=== PATIENT | male | born 1960 | race American Indian/Alaskan Native ===

== ENCOUNTER 2017-01-19 16:26 | Inpatient (IN) | payer BC, OTHER ==
[2017-01-19 18:52] LABS: Basophils % (Auto) 0.7 % (0.0-1.8); Eosinophils % (Auto) 2.1 % (0.0-4.3); Hematocrit 38.7 % (35.5-45.6); Hemoglobin 12.9 gm/dl (11.8-15.2); Mean Corpuscular HGB Conc 33 % (32-34); Mean Corpuscular Hemoglobin 29 pg (28-32); Mean Corpuscular Volume 86 fl (84-94); Platelet Count 195 K/mm3 (140-440); Red Blood Count 4.49 M/mm3 (3.65-5.03); Red Cell Distribution Width 13.5 % (13.2-15.2); White Blood Count 11.7 K/mm3 (4.5-11.0)
[2017-01-19 19:12] LABS: BUN/Creatinine Ratio 15.55; Blood Urea Nitrogen 14 mg/dL (9-20); Calcium 8.8 mg/dL (8.4-10.2); Carbon Dioxide 26 mmol/L (22-30); Glucose 185 mg/dL (75-100)
[2017-01-19 19:13] LABS: Anion Gap 18 mmol/L; Potassium 4.1 mmol/L (3.6-5.0); Sodium 139 mmol/L (137-145)
[2017-01-20] MEDS ORDERED: NACL ONE (00:21)
[2017-01-20] MEDS ORDERED: ZOFRAN IV ONE (00:53)
[2017-01-20] MEDS ORDERED: MORPHINE IV ONE (00:53)
[2017-01-20] MEDS ORDERED: APRESOLINE IV ONE (00:53)
[2017-01-20] MEDS ORDERED: BABY ASPIRIN PO ONE (00:55)
--- NOTE | 2017-01-20 00:55 | Emergency Department Report ---
HPI - General Chief Complaint: Dyspnea/Respdistress Time Seen by Provider: 01/20/17 00:15 - HPI HPI: The patient is a 56-year-old male who presents for evaluation of chest pain and dyspnea. The patient reports pressure-like midsternal chest pain for the past 5 days, 5/10 in severity, constant for the past one day. The patient also reports a productive cough of green sputum for the past 3 weeks, worse for the past one day, and associated with intermittent shortness of breath with exertion. The patient denies trauma to the chest, fever, syncope, hemoptysis, unilateral leg swelling, recent immobilization, history of DVT or PE, recent cancer or surgery. ED Past Medical Hx - Past Medical History Hx Hypertension: Yes Hx Diabetes: Yes - Surgical History Hx Coronary Stent: Yes - Social History Smoking Status: Never Smoker Substance Use Type: None - Medications Home Medications: Home Medications Medication Instructions Recorded Confirmed Last Taken Type Amitriptyline [Elavil] 25 mg PO QHS 08/16/15 08/16/15 08/15/15 History Aspirin [Aspirin TAB] 325 mg PO DAILY 08/16/15 08/16/15 08/16/15 History Cyclobenzaprine [Flexeril] 10 mg PO TID PRN #14 tablet 08/16/15 Unknown Rx Hydrochlorothiazide [HCTZ] 25 mg PO QDAY 08/16/15 08/16/15 08/16/15 History Insulin Aspart [NovoLOG Flexpen] 26 units SQ AC 08/16/15 08/16/15 08/15/15 History Insulin Glargine,Hum.rec.anlog 80 units SQ DAILY 08/16/15 08/16/15 08/15/15 History [Lantus Solostar] Lisinopril [Zestril TAB] 40 mg PO QDAY 08/16/15 08/16/15 08/16/15 History Pregabalin [Lyrica] 150 mg PO TID 08/16/15 08/16/15 08/16/15 History oxyCODONE /ACETAMINOPHEN [Percocet 1 - 2 tab PO Q6HR PRN #20 tablet 08/16/15 Unknown Rx 5/325] ED Review of Systems ROS: Stated complaint: TIGHTNESS IN CHEST Other details as noted in HPI Constitutional: denies: fever ENT: denies: throat or neck pain Respiratory: reports: cough, shortness of breath Cardiovascular: reports: chest pain Endocrine: denies unexplained weight loss or gain Gastrointestinal: denies: abdominal pain, nausea Genitourinary: denies: dysuria Musculoskeletal: denies: leg swelling Skin: denies: rash Neurological: denies: headache Hematological/Lymphatic: denies: easy bleeding or easy bruising Psych: denies sadness or hopelessness Physical Exam - Physical Exam Vital Signs: Vital Signs 01/19/17 01/20/17 01/20/17 18:22 00:21 00:29 Temperature 99.7 F H Pulse Rate 93 H 83 Respiratory 16 15 20 Rate Blood Pressure 152/103 O2 Sat by Pulse 99 96 97 Oximetry Physical Exam: General: well-nourished, well-developed, no acute distress Head: Normocephalic, atraumatic Eyes: normal sclera ENT: Mucous membranes are pink and moist Neck: trachea midline, neck supple, No neck stiffness, no cervical adenopathy Respiratory: Breath sounds equal bilaterally, no wheezing, rales, or rhonchi Cardio: S1 and S2 present, no murmurs, rubs, gallops, capillary refill is brisk Abdomen: Normoactive bowel sounds, soft abdomen, no rigidity, no guarding or rebound tenderness Musc: No pitting edema Skin: No rash Neuro: no facial drooping, normal speech Psych: Normal affect ED Course Vital Signs 01/19/17 01/20/17 01/20/17 18:22 00:21 00:29 Temperature 99.7 F H Pulse Rate 93 H 83 Respiratory 16 15 20 Rate Blood Pressure 152/103 O2 Sat by Pulse 99 96 97 Oximetry ED Medical Decision Making - Lab Data Result diagrams: 01/19/17 18:37 01/19/17 18:37 - Medical Decision Making The patient was seen and examined by myself. The patient is placed on a cardiac exercise specialist and continuous pulse ox. On initial evaluation, the patient was found to be in no distress. EKG was negative for findings suggestive of acute cardiac infarct. The patient is given IV morphine for his pain, IV hydralazine for his elevated blood pressure, and Tessalon Perles for his cough. Chest x-ray is negative for pneumothorax, focal consolidation, pulmonary vascular congestion , pleural effusion, or other obvious acute cardiopulmonary disease process. Lab results revealed mildly elevated WBC 11.7, and otherwise labs were non- revealing including negative troponin. CT angiogram of the chest was obtained and revealed a 8 mm left lung apex calcified granuloma. CT of the chest was negative for pulmonary embolism or aortic dissection. The patient was reevaluated and reported that their symptoms were improved. As the patient has chest pain and risk factors for development of acute coronary event, the patient will be admitted for close cardiopulmonary monitoring, serial troponins, and evaluation by cardiology. The on-call hospitalist service was contacted. They agreed to admit the patient for further treatment and close monitoring. The ED admit order was placed. The patient was admitted in guarded condition. Critical care attestation.: If time is entered above; I have spent that time in minutes in the direct care of this critically ill patient, excluding procedure time. ED Disposition Clinical Impression: Acute chest pain, Hypertensive urgency, Lung granuloma Disposition: OP ADMITTED IP TO THIS HOSP Is pt being admited?: Yes Does the pt Need Aspirin: Yes Condition: Fair Instructions: Chest Pain (ED), Hypertension (ED) Referrals: [facility] [Other] - 3-5 Days Time of Disposition: 00:54
--- NOTE | 2017-01-20 02:00 | Cat Scan Report ---
FINAL REPORT PROCEDURE: CT ANGIO CHEST TECHNIQUE: Computerized axial tomographic angiography of the chest and pulmonary arteries was performed after the IV injection of iodinated nonionic contrast. The image data was postprocessed using maximum intensity projection (MIP) and 2-dimensional multiplanar reformatted (MPR) techniques. The examination is specifically tailored to the evaluation of the pulmonary arteries per clinical request. HISTORY: Short of breath 786.09, chest pain 786.50, chest pain COMPARISON: No prior studies are available for comparison. FINDINGS: Heart and pericardium: Normal. Thoracic aorta: There is no thoracic aortic aneurysm or dissection.. Pulmonary vasculature: Normal. No pulmonary emboli. Lymph nodes: No enlarged thoracic lymph nodes. Lungs: There is an 8 millimeter calcified granuloma at the left lung apex. There are no infiltrates.. Pleural space: No effusion, thickening, or pneumothorax. Musculoskeletal structures: No significant abnormality. Upper abdominal structures: No significant abnormality. IMPRESSION: There is no pulmonary embolism. There is no thoracic aortic aneurysm or dissection. The lungs are clear..
[2017-01-20] MEDS ORDERED: TESSALON PERLES PO ONE (02:19)
--- NOTE | 2017-01-20 03:37 | History and Physical Report ---
History of Present Illness Date of examination: 01/20/17 Chief complaint: Chest pain History of present illness: Patient is 56-year-old man with a history of type 2 diabetes mellitus, peripheral neuropathy, hypertension and coronary artery disease status post coronary stent who presents with 5 day history of substernal moderate intense pressure-like nonradiating chest pain that became constant within the last 24 hours without aggravating or relieving factors associated with worsening productive green sputum cough 3 weeks with shortness of breath. PCP is Dr. Braun at the [place] [facility]. Past medical history: As HPI Past surgical history: Cardiac catheterization Social history: Nonsmoker, no alcohol or illegal drugs, full code Family history: Father had heart attack in his 60, brother had a heart attack in his 50s ROS: as HPI and all other ROS reviewed and negative. Medications and Allergies Allergies Allergy/AdvReac Type Severity Reaction Status Date / Time No Known Allergies Allergy Verified 05/18/16 13:24 Home Medications Medication Instructions Recorded Confirmed Last Taken Type Amitriptyline [Elavil] 25 mg PO QHS 08/16/15 08/16/15 08/15/15 History Aspirin [Aspirin TAB] 325 mg PO DAILY 08/16/15 08/16/15 08/16/15 History Cyclobenzaprine [Flexeril] 10 mg PO TID PRN #14 tablet 08/16/15 Unknown Rx Hydrochlorothiazide [HCTZ] 25 mg PO QDAY 08/16/15 08/16/15 08/16/15 History Insulin Aspart [NovoLOG Flexpen] 26 units SQ AC 08/16/15 08/16/15 08/15/15 History Insulin Glargine,Hum.rec.anlog 80 units SQ DAILY 08/16/15 08/16/15 08/15/15 History [Lantus Solostar] Lisinopril [Zestril TAB] 40 mg PO QDAY 08/16/15 08/16/15 08/16/15 History Pregabalin [Lyrica] 150 mg PO TID 08/16/15 08/16/15 08/16/15 History oxyCODONE /ACETAMINOPHEN [Percocet 1 - 2 tab PO Q6HR PRN #20 tablet 08/16/15 Unknown Rx 5/325] Active Meds: Active Medications Aspirin (Aspirin) 325 mg PO DAILY LUIS Heparin Sodium (Porcine) (Heparin) 5,000 unit SUB-Q Q12HR LUIS Metoprolol Tartrate (Lopressor) 25 mg PO BID LUIS Exam - Physical Exam Narrative exam: GEN: WDWN, NAD, AWAKE, ALERT, ORIENTATED 3 HEENT: NCAT, PERRL, EOMI, OP CLEAR NECK: SUPPLE, NO THYROMEGALY, NO JVD, NO LAD CVS: RRR, NORMAL S1S2 LUNGS/CHEST: CTA B, NORMAL CHEST EXPANSION B, GOOD AIR ENTRY B ABD: SOFT NTND, GBS, NO REBOUND OR GUARDING EXT/SKIN: NO SIGNIFICANT EDEMA OR RASH MSK: FROM X 4 EXTREMITIES NEURO: CN 2-12 GROSSLY INTACT, NO new FOCAL DEFICITS PSY: CALM - Constitutional Vitals: Temp Pulse Resp BP Pulse Ox 99.7 F H 94 H 20 148/85 93 01/19/17 18:22 01/20/17 03:00 01/20/17 03:00 01/20/17 03:00 01/20/17 03:00 Results - Labs CBC & Chem 7: 01/19/17 18:37 01/19/17 18:37 Labs: Abnormal lab results 01/19/17 01/19/17 01/20/17 Range/Units 18:37 18:37 02:29 WBC 11.7 H (4.5-11.0) K/mm3 [place] % (Auto) 7.8 H (0.0-7.3) % [place] # 0.9 H (0.0-0.8) K/mm3 Seg Neutrophils # 7.8 H (1.8-7.7) K/mm3 Glucose 185 H (75-100) mg/dL C-Reactive Protein 4.00 H (0.00-1.30) mg/dL Assessment and Plan Patient is 56-year-old man with a history of type 2 diabetes mellitus, peripheral neuropathy, hypertension and coronary artery disease status post coronary stent who presents with 5 day history of substernal moderate intense pressure-like nonradiating chest pain that became constant within the last 24 hours without aggravating or relieving factors associated with worsening productive green sputum cough 3 weeks with shortness of breath. PCP is Dr. Braun at the [facility]. CTA of the chest shows no PE..8 mm calcified granuloma left lung apex otherwise lungs clear. Cardiac enzymes, troponin and EKG unrevealing for acute coronary syndrome so far. -Chest pain: Stress test, treated with aspirin and beta blockers, nitrates -Cough, likely upper respiratory: Treat symptomatically -Type 2 diabetes mellitus: Add sliding scale insulin -Hypertension uncontrolled: Add beta sindy -Mild leukocytosis most likely reactive: Continue to follow Full code
[2017-01-20] MEDS ORDERED: NITROSTAT SL PRN (03:43)
[2017-01-20] MEDS ORDERED: D50W (25GM) IV PRN (03:43)
[2017-01-20] MEDS ORDERED: TYLENOL PO PRN (03:43)
[2017-01-20] MEDS ORDERED: ZOFRAN IV PRN (03:43)
--- NOTE | 2017-01-20 08:08 | Admit Criteria Form ---
Admission Criteria Documentation: CARDIOLOGY GRG Clinical Indications for Admission to Inpatient Care ( Place 'X' for any and all applicable criteria): Hospital admission is needed for appropriate care of the patient because of ANY ONE of the following (1): [ ] I. Hemodynamic instability as indicated by ALL of the following (1)(2)(3) (4)(5) [ ]a) Vital signs or other findings not as expected for chronic patient condition or baseline [ ]b) Instability indicated by ANY ONE of the following: [ ]i) Hypotension [ ]ii) Symptomatic Tachycardia unresponsive to treatment ( e.g., analgesia, fluids, sedation as indicated) [ ]iii) Inadequate perfusion indicated by ANY ONE of the following: [ ] 1) Lactic acidosis (> 2 mmol/L) [ ] 2) New abnormal capillary refill (> 3 seconds) [ ] 3) Reduced urine output [ ] 4) New altered mental status [ ]iv) Orthostatic vital sign changes unresponsive to treatment (e.g., fluids) [ ]v) IV inotropic or vasopressor medication required to maintain adequate blood pressure or perfusion [ ] II. Severe heart failure as indicated by ANY ONE of the following(17)(18) [ ]a) Respiratory distress [ ]b) Hypotension [ ]c) Anasarca (refractory to outpatient therapy) [ ]d) Cardiac arrhythmias of immediate concern [ ]e) Myocardial ischemia [ ] III. Cardiac arrhythmias or findings of immediate concern indicated by ANY ONE of the following (19)(20): [ ] a) Heart rhythms that are inherently dangerous or unstable indicated by ANY ONE of the following (21)(22)(23): [ ] i) Resuscitated ventricular fibrillation or cardiac arrest [ ] ii) Ventricular escape rhythm [ ] iii) Sustained ventricular tachycardia (30 seconds or more of ventricular rhythm at greater than 100 beats per minute) [ ] iv) Nonsustained ventricular tachycardia and ANY ONE of the following: [ ] 1) Suspected cardiac ischemia as cause or consequence of ventricular tachycardia [ ] 2) In setting of acute myocarditis [ ] b) Unstable cardiac conduction defects indicated by ANY ONE of the following(23)(24)(25) [ ] i) Type II second-degree atrioventricular block [ ]ii) Third-degree atrioventricular block [ ]iii) New-onset left bundle branch block with suspected myocardial ischemia [ ]c) Any heart rhythm and ANY ONE of the following (21)(22)(26)(27) (28) [ ] i) Continuous long-term ECG monitoring needed (e.g., initiation of drug requiring monitoring for more than 24 hours) [ ] ii) Patient has automatic implanted cardioverter defibrillator that is repeatedly firing, malfunctioning, or in need of immediate adjustment of settings beyond the scope of ambulatory or observation care [ ]d) Heart rhythms of concern due to ANY ONE of the following: [ ] i) Hypotension [ ] ii) Respiratory distress [ ] iii) Association with other significant symptoms (e.g., bradycardia with syncope or ongoing dizziness, supraventricular tachycardia with chest pain (14)(15)(17) [ ] IV. Monitoring for cardiac contusion beyond the scope of observation care needed [A](30)(31)(32) [ ] V. Surgical or device complication (e.g., valve replacement complication , pacemaker dysfunction) (35)(41)(44)(45)(46) [ ] . Inpatient palliative care needed. [B](49) Also use Inpatient Palliative Care Criteria [ ] VII. Nonbacterial thrombotic (marantic) endocarditis (36)(43)(47)(48) [ X] VIII. Cardiology condition, symptom, or finding for which emergency and observation care has failed or are not considered appropriate. [ ] IX. Acute valvular disease requiring inpatient as indicated by ANY ONE of the following (41) [ ]a) Acute valvular regurgitation (42) [ ]b) Noninfectious valvulitis (43) [ ]c) Obstructive valve thrombosis [ ]d) Paravalvular leak [ ]e) Other significant valvular disorder remaining after emergency or observation level of care (as appropriate) [ ]X. Pericardial disease requiring inpatient treatment as indicated by ANY ONE of the following (33)(34)(35)(36)(37) [ ]a) Suspected tamponade (38)(39)(40) [ ]b) Hemopericardium [ ]c) Other significant pericardial disorder remaining after emergency or observation level of care (as appropriate) [ ] XI. Cardiac ischemia beyond scope of emergency and observation care. [ ] XII. Hypertension requiring inpatient treatment as indicated by ANY ONE of the following (6)(7)(8) [ ]a) SBP greater than 220 mm Hg or DBP greater than 120 mmHg despite treatment [ ]b) SBP greater than 140 mm Hg or DBP greater than 100 mm Hg with evidence of acute end organ damage as indicated by ANY ONE of the following [ ] i) Altered mental status [ ] ii) Acute renal failure as indicated by new onset of ANY ONE of the following (9)(10)(11)(12)(13) [ ]1) 3-fold rise in serum creatinine from baseline [ ]2) Serum creatinine greater than 4 mg/dL ( 354 micromoles/L) with acute rise greater than 0.5 mg/dL (44.2 micromoles/L) [ ]3) Reduction of more than 75% in estimated glomerular filtration rate from baseline [ ]4) Estimated glomerular filtration rate less than 35 mL/min/1.73m2 (0.59 mL/sec/1.73m2) in child up to 18 years of age [ ]5) Cessation of urine output indicated by ALL of the following [ ]A. Adequate volume status [ ]B. Inadequate urine output as indicated by ANY ONE of the following [ ]a. Urine output less than 0.3 mL/kg/hr for 24 hours [ ]b. Anuria (urine output less than 0.1 mL/kg/hr) for 12 hours [ ] iii) Aortic dissection [ ] iv) Myocardial Ischemia [ ] v) Left ventricular heart failure [ ]vi) Retinal Hemorrhage [ ]vii) Other significant finding [ ]c) Hypertension in child requiring inpatient treatment as indicated by ALL of the following(14)(15)(16) [ ] i) Outpatient treatment not effective, not available, or not appropriate [ ]ii) SBP or DBP greater than 95th percentile for age [ ]iii) Evidence of acute end organ damage as indicated by ANY ONE of the following [ ]1) Altered mental status [ ]2) Acute renal failure as indicated by new onset of ANY ONE of the following(9)(10)(11)(12)(13) [ ]A. 3-fold rise in serum creatinine from baseline [ ]B. Serum creatinine greater than 4 mg/dL (354 micromoles/L) with acute rise greater than 0.5 mg/dL (44.2 micromoles/L) [ ]C. Reduction of more than 75% in estimated glomerular filtration rate from baseline [ ]D. Estimated glomerular filtration rate less than 35 mL/min/1.73m2 (0.59 mL/sec/1.73m2) in child up to 18 years of age [ ]E. Cessation of urine output indicated by ALL of the following [ ]a. Adequate volume status [ ]b. Inadequate urine output as indicated by ANY ONE of the following [ ]i) Urine output less than 0.3 mL/kg/hr for 24 hours [ ]ii) Anuria ( urine output less than 0.1 mL/kg/hr) for 12 hours [ ]3) Severe headache [ ]4) Visual disturbance [ ]5) Retinal hemorrhage [ ]6) Other significant finding [ ]XIII. Complications of transplanted heart indicated by ANY ONE of the following(61): [ ]a) Acute graft rejection requiring inpatient management (eg, intravenous immunosuppression)(62)(63) [ ]b) Acute graft heart failure indicated by ANY ONE of the following(64): [ ]i) Hemodynamic instability [ ]ii) Cardiac arrhythmias of immediate concern [ ]iii) Pulmonary edema that is very severe (eg, mechanical ventilation needed, imminent or likely, need for 100% oxygen to keep oxygen saturation above 90%) [ ]iv) Pulmonary edema that is persistent as indicated by ALL of the following: [ ]1) New need for oxygen therapy to keep oxygen saturation above 90% (or increased FiO2 need from baseline) [ ]2) Has not improved sufficiently with emergency department or observation care IV diuretics or other heart failure treatments[E] [ ]v) Altered mental status that is severe or persistent [ ]vi) Increased creatinine (new on laboratory test) with reduction of more than 50% in estimated glomerular filtration rate from baseline [ ]vii) Progressively (ongoing) rising creatinine (known from past laboratory test) with reduction of more than 25% in estimated glomerular filtration rate from baseline [ ]viii) Acute renal failure [ ]ix) Acute peripheral ischemia (eg, examination shows pulseless, cool, mottled, or cyanotic extremity) [ ]x) Pulmonary artery catheter monitoring needed [ ]xi) Other sign or symptom of heart failure requiring inpatient treatment (ie, too severe or not responsive to outpatient and observation care treatment) [ ]c) Infection requiring inpatient management (eg, Hemodynamic instability, need for intravenous antimicrobial treatment)(66)(67)(68)(69)(70) [ ]d) Cardiac allograft vasculopathy requiring inpatient management ( eg evidence of cardiac ischemia)(71) [ ]e) Other complication of transplanted heart (eg, stroke, severe pulmonary hypertension, severe valvular dysfunction) requiring inpatient management(72) The original [facility] [employer] content created by [email or web address] has been revised. The portions of the content which have been revised are identified through the use of italic text or in bold, and [facility] has neither reviewed nor approved the modified material. All other unmodified content is copyright [facility] [email or web address]. Please see references footnoted in the original [facility] [email or web address] edition 2016 Admission Criteria Met: Yes
[2017-01-20] MEDS ORDERED: LEXISCAN IV ONE (08:30)
[2017-01-20] MEDS: ASPIRIN PO SCH (10:51)
[2017-01-20] MEDS: LOPRESSOR PO SCH ×2 (10:52→22:13)
[2017-01-20] MEDS: HEPARIN SUB-Q SCH ×2 (10:53→22:13)
--- NOTE | 2017-01-20 11:50 | Event Note ---
Date: 01/20/17 Patient seen and examined. This is a follow-up from an admission earlier this morning. I discussed the case with the brush filler hand. The stress thallium appears to be negative. However, patient does have a diminished EF. We will obtain an echocardiogram for further evaluation. The chest pain is atypical. The patient describes pain more associated with coughing. Patient states that his symptoms began with cough and cold symptoms. Cough productive of yellow sputum. I suspect patient may have an acute bronchitis. We will treat with Levaquin 750 mg IV daily.
[2017-01-20] MEDS ORDERED: PNEUMOVAX 23 IM ONE (12:00)
[2017-01-20] MEDS ORDERED: FLUARIX QUAD 2016-2017(36 MOS+) IM ONE (12:00)
[2017-01-20] MEDS ORDERED: LEVAQUIN 750MG/150ML 750 MG/150 ML BAG IV SCH (15:00)
--- NOTE | 2017-01-20 16:55 | Event Note ---
Date: 01/20/17 Echo reviewed - EF 50 - 55%. Cont Lopressor. Follow up with Dr. Farr in our [place] office on 02/01/2017 @ 10:00AM. Omar GARRIDO NP / DR. CRUZ
[2017-01-20] MEDS: NOVOLOG SUB-Q SCH ×2 (17:42→20:28)
--- NOTE | 2017-01-20 23:56 | Treadmill Report ---
PROCEDURE: Nuclear perfusion study done on 01/20/2017. REASON FOR STUDY: Chest pain. READING PHYSICIAN: Raman Farr MD IMAGING PROTOCOL: IMAGING PROTOCOL: The patient received 10 mCi of Technetium 99m Tetrofosmin for resting image and 28 mCi of Technetium 99m Tetrofosmin for stress imaging. The imaging for the whole procedure was completed 30-90 minutes following the initial injection of Technetium 99m tetrofosmin. The SPECT imaging in the 180 degree arc was performed in the right anterior oblique projection. Computerized reconstruction of the images was performed for analysis. IMAGING RESULTS: Normal cavity size from stress to rest. Normal distribution of radionuclide in the anterior, inferior, septal and apical regions. Gated SPECT shows EF of 35% to 40% with no wall motion abnormality. The patient infused Lexiscan with no EKG changes. SUMMARY: 1. Negative Lexiscan EKG. 2. Normal rest and stress myocardial perfusion scan. No significant ischemia noted. 3. Gated SPECT shows EF around 35 to 40%, we suggest an echo for quantification LV function, but no significant ischemia noted. JOB# [id number] BETTY/FERNY NELSON
[2017-01-21] MEDS: NOVOLOG SUB-Q SCH ×2 (00:13→07:09)
--- NOTE | 2017-01-21 09:31 | Discharge Summary ---
Providers - Providers Date of Admission: 01/20/17 03:28 Date of discharge: 01/21/17 Attending physician: LEVI OMALLEY none Primary care physician: dr naidu at the [facility] Hospitalization Condition: Fair Pertinent studies: Perfusion stress tests unremarkable. CT of chest also unremarkable. Echocardiogram ejection fraction 55%. isoenzymes negative. Hospital course: Patient 56-year-old male with history of hypertension coronary artery disease status post stent presented to ED with green productive sputum chest pain. Patient treated for upper respiratory tract infection and also ruled out for myocardial infarction and ischemia to follow-up with [facility] on 2016. Disposition: DISCHARGED TO HOME OR SELFCARE - Discharge Diagnoses (1) Bronchitis Status: Acute Comment: Continue by mouth anabiotic's azithromycin upon discharge. Follow-up with [facility] in 3-5 days. (2) Acute chest pain Status: Acute Comment: She ruled out for myocardial infarction follow-up with [facility] Dr. Farr on February 01 (3) Hypertensive urgency Status: Acute Comment: Resolved after resumption of by mouth antihypertensives (4) Lung granuloma Status: Acute Comment: Stable granuloma can be followed up on outpatient basis. Core Measure Documentation - Palliative Care Palliative Care/ Comfort Measures: Not Applicable - Core Measures Any of the following diagnoses?: none Exam - Constitutional Vitals: Temp Pulse Resp BP Pulse Ox 98.2 F 76 20 167/84 98 01/21/17 05:33 01/21/17 05:33 01/21/17 05:33 01/21/17 05:33 01/21/17 05:33 General appearance: Present: no acute distress, well-nourished - EENT Eyes: Present: PERRL ENT: hearing intact, clear oral mucosa - Neck Neck: Present: supple, normal ROM - Respiratory Respiratory effort: normal Respiratory: bilateral: CTA - Cardiovascular Heart Sounds: Present: S1 & S2. Absent: rub, click - Extremities Extremities: pulses symmetrical, No edema Peripheral Pulses: within normal limits - Abdominal General gastrointestinal: Present: soft, non-tender, non-distended, normal bowel sounds Male genitourinary: Present: normal - Integumentary Integumentary: Present: clear, warm, dry - Musculoskeletal Musculoskeletal: gait normal, strength equal bilaterally - Psychiatric Psychiatric: appropriate mood/affect, intact judgment & insight - Neurologic Neurologic: CNII-XII intact, moves all extremities Plan Activity: no restrictions Weight Bearing Status: Full Weight Bearing Diet: low cholesterol Follow up with: [facility] [Other] - 3-5 Days Prescriptions: Amitriptyline [Elavil] 25 mg PO QHS #30 tablet Aspirin [Aspirin TAB] 325 mg PO DAILY #30 tablet Cyclobenzaprine [Flexeril 10 MG TAB] 10 mg PO TID PRN #14 tablet PRN Reason: Muscle Spasm Hydrochlorothiazide [HCTZ] 25 mg PO QDAY #30 tablet Insulin Aspart [NovoLOG Flexpen] 26 units SQ AC #1 insuln.pen Insulin Glargine,Hum.rec.anlog [Lantus Solostar] 80 units SQ DAILY #1 insuln.pen Lisinopril [Zestril TAB] 40 mg PO QDAY #30 tablet Metoprolol [Lopressor TAB] 25 mg PO BID #60 tablet Pregabalin [Lyrica] 150 mg PO TID #90 capsule
--- NOTE | 2017-01-21 09:56 | Query- Chest Pain ---
Deajanet Ho Davin Date: 01/21/17 Film Masker/CDS: Talon Prasad Phone#: [phone] Exercise your independent professional judgment when responding to query. Questions asked do not imply a particular answer is desired or expected. We greatly appreciate your clarification on this issue. Clinical Documentation States: 56 year old male was admitted on 01/20/17. The discharge summary dictates " Hospitalization Condition: Fair Pertinent studies: Perfusion stress tests unremarkable. CT of chest also unremarkable. Echocardiogram ejection fraction 55%. isoenzymes negative. Hospital course: Patient 56-year-old male with history of hypertension coronary artery disease status post stent presented to ED with green productive sputum chest pain. Patient treated for upper respiratory tract infection and also ruled out for myocardial infarction and ischemia to follow-up with [facility] on 2016. Disposition: DISCHARGED TO HOME OR SELFCARE - Discharge Diagnoses (1) Bronchitis Status: Acute Comment: Continue by mouth anabiotic's azithromycin upon discharge. Follow-up with [place] [facility] in 3-5 days. (2) Acute chest pain Status: Acute Comment: She ruled out for myocardial infarction follow-up with [facility] Dr. Farr on February 01 (3) Hypertensive urgency Status: Acute Comment: Resolved after resumption of by mouth antihypertensives (4) Lung granuloma Status: Acute Comment: Stable granuloma can be followed up on outpatient basis. " Please document the etiology of Chest Pain: [ ] Myocardial Infarction [ ] Pneumonia [ ] Mediastinitis [ x] Costochondritis [ ] Pulmonary Embolism [ ] Coronary Artery Disease [ ] GERD [ ] Other: [ ] Comment/Explanation: Present on Admission: [ x] Yes (Y) [ ] Clinically undeterminable (W) [ ] No(N) Please document response in your Progress Notes and/or Discharge Summary and indicate if the condition was present on admission. OMAR
[2017-01-21] MEDS: HEPARIN SUB-Q SCH (10:02)
[2017-01-21] MEDS: ASPIRIN PO SCH (10:31)
[2017-01-21] MEDS: LOPRESSOR PO SCH (10:34)
[2017-01-21 10:39] VITALS: BP 181/101
== END 2017-01-21 15:05 | disposition home or self-care (01) | DRG 206 ==
LOC: ED 16:26 → 4A 01-20 03:28
PROVIDERS: ADMIT Internal Medicine; ATTEND Internal Medicine
DX: M94.0 Chondrocostal junction syndrome [Tietze] (principal); I16.0 Hypertensive urgency; J84.10 Pulmonary fibrosis, unspecified; I25.10 Atherosclerotic heart disease of native coronary artery without angina pectoris; J20.9 Acute bronchitis, unspecified; E11.42 Type 2 diabetes mellitus with diabetic polyneuropathy; D72.829 Elevated white blood cell count, unspecified; J06.9 Acute upper respiratory infection, unspecified; Z95.5 Presence of coronary angioplasty implant and graft; Z82.49 Family history of ischemic heart disease and other diseases of the circulatory system
CPT/HCPCS: 36415; 71020; 71275; 78452; 80048; 82164; 82962; 83880; 84484; 85025; 85652; 86140; 90686; 90732; 93005; 93010; 93017; 93306; 96374; 96375; A9502; J0360; J1644; J1815; J1956; J2270; J2405; J2785; Q9967

== ENCOUNTER 2017-12-22 18:59 | Emergency (ER) | payer BC ==
--- NOTE | 2017-12-22 20:38 | Emergency Department Report ---
ED Syncope HPI - General Chief Complaint: Extremity Injury, Lower Stated Complaint: LOW BP/CRAMPING Time Seen by Provider: 12/22/17 20:14 Source: patient, family, EMS Exam Limitations: no limitations - History of Present Illness Initial Comments: 57-year-old man had syncopal or near syncopal episode approximately 90 minutes prior to arrival. 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 Patient subsequently developed secondary sweating, was called, found patient in a near syncopal state, upright in a chair at the school, but not responsive to him. EMS was called, found blood pressure was difficult to obtain, begin IV, Reglan EKG which without acute abnormality, and transferred patient for further evaluation. Patient is an insulin-dependent diabetic, takes his insulin regularly, but does not follow any particular diet, was not ill recently, has been eating and drinking normally, but reports she has had prior episodes, the latest one was 2 or 3 weeks ago, but was much more brief, with cramping in the calves, and mild brief lightheadedness. He has not sought treatment for this before. Past history is significant for hypertension, diabetes mellitus, and prior cardiac stenting several years ago. Patient had no chest pain, no shortness of breath, and is feeling much better after arrival in emergency department. EKG reviewed by EMS, shows normal sinus rhythm, heart rate of 80, nonspecific ST flattening, and insignificant ST elevation in V1 and V2, less than 2 mm, but no old tracing for comparison. Timing/Prior Episodes: recent history, remote history Precipitating Factors: Positive: blurred vision, confusion, diaphoresis, lightheadedness, pain (cramping, lower extremities). Negative: nausea Context: standing, activity Episode Description: bilateral extremity cramping, likely lower, with lightheadedness and syncop - Related Data Allergies/Adverse Reactions: Allergies No Known Allergies Allergy (Verified 05/18/16 13:24) Home Medications: Ambulatory Orders Aspirin [Aspirin TAB] 325 mg PO DAILY 08/16/15 Amitriptyline [Elavil] 25 mg PO QHS #30 tablet 01/21/17 Aspirin [Aspirin TAB] 325 mg PO DAILY #30 tablet 01/21/17 Cyclobenzaprine [Flexeril 10 MG TAB] 10 mg PO TID PRN #14 tablet 01/21/17 Hydrochlorothiazide [HCTZ] 25 mg PO QDAY #30 tablet 01/21/17 Insulin Aspart [NovoLOG Flexpen] 26 units SQ AC #1 insuln.pen 01/21/17 Insulin Glargine,Hum.rec.anlog [Lantus Solostar] 80 units SQ DAILY #1 insuln.pen 01/21/17 Lisinopril [Zestril TAB] 40 mg PO QDAY #30 tablet 01/21/17 Metoprolol [Lopressor TAB] 25 mg PO BID #60 tablet 01/21/17 Pregabalin [Lyrica] 150 mg PO TID #90 capsule 01/21/17 ED Review of Systems ROS: Stated complaint: LOW BP/CRAMPING Other details as noted in HPI Constitutional: see HPI, diaphoresis, weakness. denies: fever Eyes: denies: eye pain, eye discharge, vision change ENT: denies: ear pain, throat pain Respiratory: no symptoms reported. denies: shortness of breath Cardiovascular: syncope. denies: chest pain, palpitations, dyspnea on exertion , edema Endocrine: denies: increased hunger, increased thirst, increased urine Gastrointestinal: denies: abdominal pain, nausea, vomiting Genitourinary: denies: dysuria, frequency Musculoskeletal: other (cramping, bilateral, lower extremities) Skin: as per HPI Neurological: weakness, paresthesias Psychiatric: denies: anxiety, depression Hematological/Lymphatic: denies: easy bleeding, easy bruising ED Past Medical Hx - Past Medical History Previous Medical History?: Yes Hx Hypertension: Yes Hx Diabetes: Yes Hx Kidney Stones: Yes Hx Asthma: No Hx COPD: No - Surgical History Past Surgical History?: Yes Hx Coronary Stent: Yes Additional Surgical History: testicle removed in 1969 - Social History Smoking Status: Never Smoker Substance Use Type: None - Medications Home Medications: Home Medications Medication Instructions Recorded Confirmed Last Taken Type Aspirin [Aspirin TAB] 325 mg PO DAILY 08/16/15 01/20/17 1 Day Ago History ~01/19/17 Amitriptyline [Elavil] 25 mg PO QHS #30 tablet 01/21/17 Unknown Rx Aspirin [Aspirin TAB] 325 mg PO DAILY #30 tablet 01/21/17 Unknown Rx Cyclobenzaprine [Flexeril 10 MG 10 mg PO TID PRN #14 tablet 01/21/17 Unknown Rx TAB] Hydrochlorothiazide [HCTZ] 25 mg PO QDAY #30 tablet 01/21/17 Unknown Rx Insulin Aspart [NovoLOG Flexpen] 26 units SQ AC #1 insuln.pen 01/21/17 Unknown Rx Insulin Glargine,Hum.rec.anlog 80 units SQ DAILY #1 insuln.pen 01/21/17 Unknown Rx [Lantus Solostar] Lisinopril [Zestril TAB] 40 mg PO QDAY #30 tablet 01/21/17 Unknown Rx Metoprolol [Lopressor TAB] 25 mg PO BID #60 tablet 01/21/17 Unknown Rx Pregabalin [Lyrica] 150 mg PO TID #90 capsule 01/21/17 Unknown Rx ED Physical Exam - General Limitations: No Limitations General appearance: alert, in no apparent distress - Head Head exam: Present: atraumatic, normocephalic - Eye Eye exam: Present: normal appearance, PERRL - ENT ENT exam: Present: mucous membranes moist - Neck Neck exam: Present: normal inspection - Respiratory Respiratory exam: Present: normal lung sounds bilaterally. Absent: wheezes, rales, rhonchi - Cardiovascular Cardiovascular Exam: Present: regular rate, normal rhythm, normal heart sounds. Absent: systolic murmur, diastolic murmur - GI/Abdominal GI/Abdominal exam: Present: soft. Absent: tenderness - Rectal Rectal exam: Present: deferred - Extremities Exam Extremities exam: Present: normal inspection, other (no muscle spasm). Absent: tenderness, pedal edema, joint swelling - Back Exam Back exam: Present: normal inspection. Absent: CVA tenderness (R), CVA tenderness (L), muscle spasm, paraspinal tenderness, vertebral tenderness - Neurological Exam Neurological exam: Present: alert, oriented X3 - Psychiatric Psychiatric exam: Present: normal affect, normal mood - Skin Skin exam: Present: warm, dry, intact. Absent: pallor ED Course Vital Signs 12/22/17 12/22/17 12/22/17 19:27 21:00 22:00 Temperature 99.5 F Pulse Rate 78 79 77 Respiratory 13 17 15 Rate Blood Pressure 149/85 157/92 150/87 Blood Pressure 149/85 [Left] O2 Sat by Pulse 97 97 96 Oximetry - Reevaluation(s) Reevaluation #1: 12/22/17 22:12 Patient stable on recheck, asymptomatic, with normal labs, and normal EKG. Repeat blood pressure is 143/86, heart rate 76. ED Medical Decision Making - Lab Data Result diagrams: 12/22/17 20:37 12/22/17 20:51 - EKG Data -: EKG Interpreted by Ct EKG shows normal: sinus rhythm, axis (normal at 21 QRS axis), intervals ( normal QT at 436 ms corrected), QRS complexes (normal QRS complexes), ST-T waves (normal ST segments without elevations) Rate: normal - EKG Data When compared to previous EKG there are: previous EKG unavailable Interpretation: normal EKG - Medical Decision Making Patient has had a near-syncopal episode, likely as a result of being overheated , with a vasovagal response, while he was performing modest exertional physical activities as part of his routine work duties before arrival. He has been stable during his entire examination, blood pressure is been stable. He has a mild CK elevation, likely indicative of mild heat exhaustion, but he is not anemic, and no significant electrolyte abnormalities, but his glucose is actually fairly stable at 240. He is stable for discharge home, will be placed off work tomorrow to rest, and has a scheduled visit with his primary doctor tomorrow, and copies of labs will be given for review. Critical Care Time: No Critical care attestation.: If time is entered above; I have spent that time in minutes in the direct care of this critically ill patient, excluding procedure time. ED Disposition Clinical Impression: Vasovagal reaction Syncope Qualifiers: Syncope type: vasovagal syncope Qualified Code(s): R55 - Syncope and collapse Diabetes mellitus Qualifiers: Diabetes mellitus type: type 2 Diabetes mellitus intermediate insulin use: without intermediate use Diabetes mellitus complication status: without complication Qualified Code(s): E11.9 - Type 2 diabetes mellitus without complications Heat exhaustion, unspecified Qualifiers: Encounter type: initial encounter Qualified Code(s): T67.5XXA - Heat exhaustion , unspecified, initial encounter Disposition: TO HOME OR SELFCARE Is pt being admited?: No Does the pt Need Aspirin: No Condition: Stable Instructions: Syncope (ED), Diabetes Mellitus Type 2 in Adults (ED) Additional Instructions: COPIES OF LABS AND ECG WITH PATIENT FOR REVIEW BY MD AT [facility] TOMORROW. Rest at home tomorrow, no work, work excuse provided Repeat examination with your doctor tomorrow, as scheduled. Continue other medications as before If he had similar symptoms, we recommend that you treat lightheadedness by sitting down immediately, place and head between your legs, and resting, for several minutes. If he still felt lightheaded, we recommend that you lay prone , flat on the floor, or on the bed, but do not keep your head upright, as it makes it harder to maintain circulation to the brain while you are upright. Continue other medications as before. Referrals: NAHID JAVED MD [Primary Care Provider] - 3-5 Days Forms: Work/School Release Form(ED) Time of Disposition: 22:14
[2017-12-22 20:52] LABS: Basophils # (Auto) 0.1 K/mm3 (0.0-0.1); Basophils % (Auto) 0.6 % (0.0-1.8); Eosinophils # (Auto) 0.1 K/mm3 (0.0-0.4); Eosinophils % (Auto) 0.9 % (0.0-4.3); Hematocrit 40.7 % (35.5-45.6); Hemoglobin 13.6 gm/dl (11.8-15.2); Lymphocytes # (Auto) 1.8 K/mm3 (1.2-5.4); Lymphocytes % (Auto) 16.9 % (13.4-35.0); Mean Corpuscular HGB Conc 33 % (32-34); Mean Corpuscular Hemoglobin 29 pg (28-32); Mean Corpuscular Volume 85 fl (84-94); Monocytes # (Auto) 0.8 K/mm3 (0.0-0.8); Monocytes % (Auto) 7.2 % (0.0-7.3); Platelet Count 202 K/mm3 (140-440); Red Blood Count 4.77 M/mm3 (3.65-5.03); Red Cell Distribution Width 13.7 % (13.2-15.2)
[2017-12-22 21:14] LABS: Creatine Kinase MB 4.6 ng/mL (0.0-4.0)
[2017-12-22 21:15] LABS: Alanine Aminotransferase 16 units/L (7-56); Albumin 4.2 g/dL (3.9-5); BUN/Creatinine Ratio 13; Blood Urea Nitrogen 16 mg/dL (9-20); Calcium 9.2 mg/dL (8.4-10.2); Hemolysis Index 2
[2017-12-22 22:07] VITALS: BP 150/87
== END 2017-12-22 23:10 | disposition home or self-care (01) ==
LOC: ED 18:59
DX: T67.5XXA Heat exhaustion, unspecified, initial encounter (principal); R55 Syncope and collapse; E11.9 Type 2 diabetes mellitus without complications; M79.604 Pain in right leg; M79.605 Pain in left leg; R20.0 Anesthesia of skin; H53.8 Other visual disturbances; R61 Generalized hyperhidrosis; I10 Essential (primary) hypertension; Z87.442 Personal history of urinary calculi; Z90.79 Acquired absence of other genital organ(s); Z95.818 Presence of other cardiac implants and grafts; X30.XXXA Exposure to excessive natural heat, initial encounter; Y93.89 Activity, other specified; Y99.8 Other external cause status; Y92.89 Other specified places as the place of occurrence of the external cause
CPT/HCPCS: 36415; 80053; 82550; 82553; 83735; 84484; 85025; 93005; 93010; 99283

== ENCOUNTER 2018-04-22 10:20 | Emergency (ER) | payer BC ==
[2018-04-22 11:35] VITALS: BP 118/72
--- NOTE | 2018-04-22 11:59 | Emergency Department Report ---
ED Neck Pain/Injury HPI - General Chief Complaint: Neck Pain/Injury Stated Complaint: SWELLING,NUMB RIGHT ARM Time Seen by Provider: 04/22/18 11:47 Mode of arrival: Ambulatory Limitations: No Limitations - History of Present Illness Initial Comments: Patient is a 57-year-old male with past medical history chronic neck pain status post post fall 18 months ago on concrete. [facility] but has not seen an orthopedic doctor at this time. Patient states the pain is getting worse or is worse when he turns his head or bends his head downward. Patient denies any fevers chills nausea vomiting. Patient does occasionally have some numbness to the right tricep. Severity scale (0 -10): 8 Quality: aching Consistency: constant - Related Data Home Medications Medication Instructions Recorded Confirmed Last Taken Aspirin [Aspirin TAB] 325 mg PO DAILY 08/16/15 01/20/17 1 Day Ago ~01/19/17 Previous Rx's Medication Instructions Recorded Last Taken Type Amitriptyline [Elavil] 25 mg PO QHS #30 tablet 01/21/17 Unknown Rx Aspirin [Aspirin TAB] 325 mg PO DAILY #30 tablet 01/21/17 Unknown Rx Cyclobenzaprine [Flexeril 10 MG 10 mg PO TID PRN #14 tablet 01/21/17 Unknown Rx TAB] Insulin Aspart [NovoLOG Flexpen] 26 units SQ AC #1 insuln.pen 01/21/17 Unknown Rx Insulin Glargine,Hum.rec.anlog 80 units SQ DAILY #1 insuln.pen 01/21/17 Unknown Rx [Lantus Solostar] Lisinopril [Zestril TAB] 40 mg PO QDAY #30 tablet 01/21/17 Unknown Rx Metoprolol [Lopressor TAB] 25 mg PO BID #60 tablet 01/21/17 Unknown Rx Pregabalin [Lyrica] 150 mg PO TID #90 capsule 01/21/17 Unknown Rx hydroCHLOROthiazide [HCTZ] 25 mg PO QDAY #30 tablet 01/21/17 Unknown Rx Ibuprofen [Motrin] 800 mg PO Q8HR PRN #20 tablet 04/22/18 Unknown Rx methOCARBAMOL [Robaxin TAB] 500 mg PO Q6H PRN #15 tablet 04/22/18 Unknown Rx traMADol [Ultram] 50 mg PO Q6HR PRN #10 tablet 04/22/18 Unknown Rx Allergies Allergy/AdvReac Type Severity Reaction Status Date / Time No Known Allergies Allergy Verified 05/18/16 13:24 ED Review of Systems ROS: Stated complaint: SWELLING,NUMB RIGHT ARM Other details as noted in HPI Comment: All other systems reviewed and negative ED Past Medical Hx - Past Medical History Hx Hypertension: Yes Hx Diabetes: Yes Hx Kidney Stones: Yes Hx Asthma: No Hx COPD: No - Surgical History Hx Coronary Stent: Yes Additional Surgical History: testicle removed in 1969 - Social History Smoking Status: Never Smoker Substance Use Type: None - Medications Home Medications: Home Medications Medication Instructions Recorded Confirmed Last Taken Type Aspirin [Aspirin TAB] 325 mg PO DAILY 08/16/15 01/20/17 1 Day Ago History ~01/19/17 Amitriptyline [Elavil] 25 mg PO QHS #30 tablet 01/21/17 Unknown Rx Aspirin [Aspirin TAB] 325 mg PO DAILY #30 tablet 01/21/17 Unknown Rx Cyclobenzaprine [Flexeril 10 MG 10 mg PO TID PRN #14 tablet 01/21/17 Unknown Rx TAB] Insulin Aspart [NovoLOG Flexpen] 26 units SQ AC #1 insuln.pen 01/21/17 Unknown Rx Insulin Glargine,Hum.rec.anlog 80 units SQ DAILY #1 insuln.pen 01/21/17 Unknown Rx [Lantus Solostar] Lisinopril [Zestril TAB] 40 mg PO QDAY #30 tablet 01/21/17 Unknown Rx Metoprolol [Lopressor TAB] 25 mg PO BID #60 tablet 01/21/17 Unknown Rx Pregabalin [Lyrica] 150 mg PO TID #90 capsule 01/21/17 Unknown Rx hydroCHLOROthiazide [HCTZ] 25 mg PO QDAY #30 tablet 01/21/17 Unknown Rx Ibuprofen [Motrin] 800 mg PO Q8HR PRN #20 tablet 04/22/18 Unknown Rx methOCARBAMOL [Robaxin TAB] 500 mg PO Q6H PRN #15 tablet 04/22/18 Unknown Rx traMADol [Ultram] 50 mg PO Q6HR PRN #10 tablet 04/22/18 Unknown Rx ED Physical Exam - General Limitations: No Limitations General appearance: alert, in no apparent distress - Head Head exam: Present: atraumatic, normocephalic - Eye Eye exam: Present: normal appearance - ENT ENT exam: Present: mucous membranes moist - Neck Neck exam: Present: normal inspection - Respiratory Respiratory exam: Present: normal lung sounds bilaterally. Absent: respiratory distress, wheezes, rales, rhonchi - Cardiovascular Cardiovascular Exam: Present: regular rate, normal rhythm. Absent: systolic murmur, diastolic murmur, rubs, gallop - GI/Abdominal GI/Abdominal exam: Present: soft, normal bowel sounds. Absent: distended, tenderness, guarding, rebound - Rectal Rectal exam: Present: deferred - Extremities Exam Extremities exam: Present: normal inspection - Back Exam Back exam: Present: normal inspection - Neurological Exam Neurological exam: Present: alert, oriented X3 - Psychiatric Psychiatric exam: Present: normal affect, normal mood - Skin Skin exam: Present: warm, dry, intact, normal color. Absent: rash ED Course Vital Signs 04/22/18 11:31 Temperature 98.7 F Pulse Rate 83 Respiratory 16 Rate Blood Pressure 118/72 O2 Sat by Pulse 96 Oximetry ED Medical Decision Making - Medical Decision Making Patient will be referred to orthopedic. Patient does have [employer] should be able to get an appointment. Patient's be discharged home with meds for symptomatic relief. Critical care attestation.: If time is entered above; I have spent that time in minutes in the direct care of this critically ill patient, excluding procedure time. ED Disposition Clinical Impression: Cervical radiculopathy Disposition: DC-01 TO HOME OR SELFCARE Is pt being admited?: No Does the pt Need Aspirin: No Condition: Stable Instructions: Cervical Radiculopathy (ED), Cervical Disc Herniation (ED) Referrals: COREY DANIEL MD [Staff Physician] - 3-5 Days Time of Disposition: 11:59
== END 2018-04-22 12:06 | disposition home or self-care (01) ==
LOC: ED 10:20
DX: M54.12 Radiculopathy, cervical region (principal); I10 Essential (primary) hypertension; E11.9 Type 2 diabetes mellitus without complications; Z87.442 Personal history of urinary calculi; Z79.82 Long term (current) use of aspirin; Z79.4 Long term (current) use of insulin
CPT/HCPCS: 99282

== ENCOUNTER 2018-06-10 08:18 | Outpatient (CLI) | payer BC ==
--- NOTE | 2018-06-10 09:09 | XRay Report ---
XRAY CERVICAL SPINE WITH OBLIQUES FIVE VIEWS: 06/10/18 08:18:00 CLINICAL: Neck pain. FINDINGS: Normal vertebral body height, alignment and disk spaces through T1. Mild degenerative change with small anterior osteophytes at C4-5 and C5-6. Moderate right neural foraminal stenosis secondary to an osteophyte is suggested by the right oblique view at C3-4. No other neural foraminal stenosis. Minimal facet joint disease. No fracture or subluxation. Normal soft tissues and airway. Normal soft tissues and airway. IMPRESSION: Mild degenerative change with spondylosis at C4-5 and C5-6. Suspect moderate right C3-4 right neural foraminal stenosis.
== END 2018-06-10 08:19 | disposition home or self-care (01) ==
LOC: XRAY 08:18
PROVIDERS: ATTEND Orthopaedic Surgery
DX: M47.892 Other spondylosis, cervical region (principal); I10 Essential (primary) hypertension; E11.9 Type 2 diabetes mellitus without complications; I25.10 Atherosclerotic heart disease of native coronary artery without angina pectoris
CPT/HCPCS: 72050

== ENCOUNTER 2019-06-04 07:37 | Inpatient (IN) | payer BC, OTHER ==
--- NOTE | 2019-06-04 08:21 | Emergency Department Report ---
ED Neuro Deficit HPI - General Chief Complaint: Extremity Injury, Upper Stated Complaint: RT ARM NUMBNESS Time Seen by Provider: 06/04/19 07:59 Source: patient Mode of arrival: Ambulatory Limitations: No Limitations - History of Present Illness Initial Comments: [employer] Tele[facility]rology [facility] Date of Service: 06/04/2019 07:58:52 Impression: RO Acute Ischemic Stroke Comments: 58 year old male with right arm weakness and numbness. Presentation can be from small stroke vs brachial plexus lesion. Mechanism of Stroke: Not Clear Metrics: Last Known Well: 06/03/2019 18:00:00 [employer] Notification Time: 06/04/2019 07:57:57 Arrival Time: 06/04/2019 07:37:00 Stamp Time: 06/04/2019 07:58:52 Time First Login Attempt: 06/04/2019 08:01:00 Video Start Time: 06/04/2019 08:01:00 Symptoms: Left arm weakness NIHSS Start Assessment Time: 06/04/2019 08:07:32 Patient is not a candidate for tPA. Patient was not deemed candidate for tPA thrombolytics because of Last Well Known Above 4.5 Hours. Video End Time: 06/04/2019 08:15:43 CT head was reviewed. Advanced imaging was not obtained as the presentation was not suggestive of Large Vessel Occlusive Disease. ER physician notified of the decision on thrombolytics management. Our recommendations are outlined below. Recommendations: Antiplatelet Therapy Recommended Recommended Scan: MRI Head Without Contrast MRA Head Without Contrast MRA Neck with and Without Contrast Echocardiogram - Transthoracic Echocardiogram Lipid Panel to Be Obtained, if Not Done in the Last Three Months Therapies: Physical Therapy, Occupational Therapy, Speech Therapy Assessment When Applicable Dysphaghia Screen: NPO Until Swallow Evaluation DVT prophylaxis: Choice of Primary Team Disposition: Follow up with Teleneurology Follow up Sign Out: Discussed with Emergency Department Provider History of Present Illness: Patient is a 58 years old Male. Patient was brought by EMS for symptoms of Left arm weakness 58 year old male who presents to the hospital because of right arm weakness which started yesterday evening after doing yard work all day. On arrival patient had weakness in the right arm and hand up to his shoulder but no other weakness or numbness. CT head was reviewed. Last seen normal was beyond 4.5 hours of presentation. Examination: 1A: Level of Consciousness - Alert; keenly responsive + 0 1B: Ask Month and Age - Both Questions Right + 0 1C: Blink Eyes & Squeeze Hands - Performs Both Tasks + 0 2: Test Horizontal Extraocular Movements - Normal + 0 3: Test Visual Shaw - No Visual Loss + 0 4: Test Facial Palsy (Use Grimace if Obtunded) - Normal symmetry + 0 5A: Test Left Arm Motor Drift - No Drift for 10 Seconds + 0 5B: Test Right Arm Motor Drift - No Drift for 10 Seconds + 0 6A: Test Left Leg Motor Drift - No Drift for 5 Seconds + 0 6B: Test Right Leg Motor Drift - No Drift for 5 Seconds + 0 7: Test Limb Ataxia (FNF/Heel-Blunt) - No Ataxia + 0 8: Test Sensation - Mild-Moderate Loss: Less Sharp/More Dull + 1 9: Test Language/Aphasia - Normal; No aphasia + 0 10: Test Dysarthria - Normal + 0 11: Test Extinction/Inattention - No abnormality + 0 NIHSS Score: 1 Patient was informed the Neurology Consult would happen via TeleHealth consult by way of interactive audio and video telecommunications and consented to receiving care in this manner. Due to the immediate potential for life-threatening deterioration due to underlying acute neurologic illness, I spent 35 minutes providing critical care. This time includes time for face to face visit via telemedicine, review of medical records, imaging studies and discussion of findings with providers, the patient and/or family. Dr Abril Treviño [employer] - Related Data Home Medications: Home Medications Medication Instructions Recorded Confirmed Last Taken Acetaminophen [Acetaminophen TAB] 500 mg PO TID PRN 04/28/18 04/28/18 Unknown Carvedilol [Coreg] 25 mg PO BID 04/28/18 04/28/18 04/28/18 Cholecalciferol (Vitamin D3) 1,000 unit PO QDAY 04/28/18 04/28/18 Unknown [Vitamin D3] Citalopram Hydrobromide [Celexa] 40 mg PO QAM 04/28/18 04/28/18 04/28/18 Insulin Aspart [NovoLOG Flexpen] 26 units SUB-Q AC 04/28/18 04/28/18 04/28/18 Insulin Glargine,Hum.rec.anlog 86 units SUB-Q QAM 04/28/18 04/28/18 Unknown [Lantus Solostar] Rosuvastatin Calcium [Crestor] 40 mg PO QDAY 04/28/18 04/28/18 04/28/18 amLODIPine [Norvasc] 10 mg PO DAILY 04/28/18 04/28/18 Unknown hydroCHLOROthiazide [HCTZ] 25 mg PO QAM 04/28/18 04/28/18 04/28/18 Previous Rx's Medication Instructions Recorded Last Taken Type Aspirin 325 mg PO DAILY #30 tablet 01/21/17 04/28/18 Rx Lisinopril [Zestril TAB] 40 mg PO QDAY #30 tablet 01/21/17 04/28/18 Rx Pregabalin [Lyrica] 150 mg PO TID #90 capsule 01/21/17 04/28/18 Rx Insulin Glargine [Lantus VIAL] 86 units SUB-Q QHS units 04/30/18 Unknown Rx Allergies/Adverse Reactions: Allergies Allergy/AdvReac Type Severity Reaction Status Date / Time No Known Allergies Allergy Verified 05/18/16 13:24 ED Review of Systems ROS: Stated complaint: RT ARM NUMBNESS Other details as noted in HPI ED Past Medical Hx - Past Medical History Previous Medical History?: Yes Hx Hypertension: Yes Hx CVA: Yes ("5 mini strokes") Hx Diabetes: Yes Hx Arthritis: Yes (Degenerative Arthritis C4-8) Hx Kidney Stones: Yes Hx Asthma: No Hx COPD: No - Surgical History Past Surgical History?: Yes Hx Coronary Stent: Yes Additional Surgical History: testicle removed in 1969 - Social History Smoking Status: Never Smoker Substance Use Type: None - Medications Home Medications: Home Medications Medication Instructions Recorded Confirmed Last Taken Type Aspirin 325 mg PO DAILY #30 tablet 01/21/17 04/28/18 04/28/18 Rx Lisinopril [Zestril TAB] 40 mg PO QDAY #30 tablet 01/21/17 04/28/18 04/28/18 Rx Pregabalin [Lyrica] 150 mg PO TID #90 capsule 01/21/17 04/28/18 04/28/18 Rx Acetaminophen [Acetaminophen TAB] 500 mg PO TID PRN 04/28/18 04/28/18 Unknown History Carvedilol [Coreg] 25 mg PO BID 04/28/18 04/28/18 04/28/18 History Cholecalciferol (Vitamin D3) 1,000 unit PO QDAY 04/28/18 04/28/18 Unknown History [Vitamin D3] Citalopram Hydrobromide [Celexa] 40 mg PO QAM 04/28/18 04/28/18 04/28/18 History Insulin Aspart [NovoLOG Flexpen] 26 units SUB-Q AC 04/28/18 04/28/18 04/28/18 History Insulin Glargine,Hum.rec.anlog 86 units SUB-Q QAM 04/28/18 04/28/18 Unknown History [Lantus Solostar] Rosuvastatin Calcium [Crestor] 40 mg PO QDAY 04/28/18 04/28/18 04/28/18 History amLODIPine [Norvasc] 10 mg PO DAILY 04/28/18 04/28/18 Unknown History hydroCHLOROthiazide [HCTZ] 25 mg PO QAM 04/28/18 04/28/18 04/28/18 History Insulin Glargine [Lantus VIAL] 86 units SUB-Q QHS units 04/30/18 Unknown Rx ED Neuro Physical Exam - General Limitations: No Limitations General appearance: alert Suspected Stroke: Yes - NIHSS Assessment Interval: Baseline 1a. Level of Consciousness: alert/keenly responsive 1b. LOC Questions: answers both correctly 1c. LOC Commands: performs tasks correctly 2. Best Gaze: normal 3. Visual: no visual loss 4. Facial Palsy: normal symmetrical movement 5b. Motor Arm Right: no drift 5a. Motor Arm Left: no drift 6a. Motor Leg Left: no drift 6b. Motor Leg Right: no drift 7. Limb Ataxia: absent 8. Sensory: mild/moderate sensory loss 9. Best Language: no aphasia 10. Dysarthria: normal 11. Extinction/Inattention: no abnormality Total Score: 1 Stroke Severity: Minor Stroke ED Course Vital Signs 06/04/19 07:43 Temperature 98.0 F Pulse Rate 81 Respiratory 16 Rate Blood Pressure 155/99 O2 Sat by Pulse 97 Oximetry Critical care attestation.: If time is entered above; I have spent that time in minutes in the direct care of this critically ill patient, excluding procedure time. ED Disposition Clinical Impression: Stroke Qualifiers: CVA mechanism: unspecified Qualified Code(s): I63.9 - Cerebral infarction, unspecified Disposition: DC-09 OP ADMIT IP TO THIS HOSP Is pt being admited?: Yes Does the pt Need Aspirin: Yes Condition: Stable
[2019-06-04 08:22] LABS: Basophils # (Auto) 0.1 K/mm3 (0.0-0.1); Basophils % (Auto) 1.1 % (0.0-1.8); Eosinophils # (Auto) 0.2 K/mm3 (0.0-0.4); Eosinophils % (Auto) 2.2 % (0.0-4.3); Hematocrit 43.8 % (35.5-45.6); Hemoglobin 14.7 gm/dl (11.8-15.2); Lymphocytes # (Auto) 2.2 K/mm3 (1.2-5.4); Lymphocytes % (Auto) 30.3 % (13.4-35.0); Mean Corpuscular HGB Conc 34 % (32-34); Mean Corpuscular Volume 85 fl (84-94); Monocytes # (Auto) 0.5 K/mm3 (0.0-0.8); Monocytes % (Auto) 7.3 % (0.0-7.3); Platelet Count 261 K/mm3 (140-440); Red Blood Count 5.13 M/mm3 (3.65-5.03); Red Cell Distribution Width 14.6 % (13.2-15.2)
--- NOTE | 2019-06-04 08:33 | Cat Scan Report ---
NONENHANCED CT SCAN OF THE BRAIN: INDICATION: neuro deficits <6hrs or sx present upon awakening. TECHNIQUE: Routine CT head without contrast. Sagittal and coronal reformatted images were obtained. A ll CT scans at this location are performed using CT dose reduction for ALARA by means of automated ex posure control. COMPARISON: CT scan of the brain from 04/28/2018 and MRI scan of the brain from 04/29/2018. FINDINGS: BRAIN / INTRACRANIAL CONTENTS: Hemorrhage:No intracranial hemorrhage; no subarachnoid hemorrhage Stroke mimics: No subdural or epidural hematoma or space taking lesion Acute/subacute territorial infarction: Carr-white matter interface: No blurring; normal Insular cortex: Normal Basal ganglia: Normal Wedge shaped parenchymal low density area: Not present Cortical sulci: Not effaced Lacunar infarctions: None Vasculopathy: Dense middle cerebral artery sign: Not present Internal carotid artery terminus: Normal Basilar artery:Normal Middle cerebral artery branches in the sylvian fissure (Dot sign): Normal Calcified embolus: Not present ASPECT score: Not applicable Chronic lesions: Left inferior and superior parietal lobule volume loss is seen. Chronic lacune is se en in the adjacent white matter. In addition, focal volume loss is also seen around posterior sylvian fissure on the left side.. Craniocervical junction:No significant abnormality Orbits:No significant abnormality Paranasal sinuses/mastoids:No significant abnormality Additional findings: None IMPRESSION: No acute/subacute infarction No change in the chronic changes in the left superior inferior parietal lobules and in the left poste rior perisylvian atrophy This exam was performed as part of a code stroke protocol. The exam was completed at [facility] on 06/04/2019 7:19 AM. The exam was reviewed at 7:26 AM Central daylight saving time and Dr. Roy was notified at 7:28 AM Central daylight saving time. Signer Name: Jocelyn Staton MD Signed: 06/04/2019 8:29 AM Workstation Name: [id number]
[2019-06-04 08:36] LABS: INR 1.05 (0.87-1.13)
[2019-06-04 08:37] LABS: BUN/Creatinine Ratio 16; Blood Urea Nitrogen 16 mg/dL (9-20); Calcium 9.3 mg/dL (8.4-10.2); Hemolysis Index 0
--- NOTE | 2019-06-04 09:18 | Emergency Department Report ---
ED Neuro Deficit HPI - General Chief Complaint: Extremity Injury, Upper Stated Complaint: RT ARM NUMBNESS Time Seen by Provider: 06/04/19 07:59 Source: patient Mode of arrival: Ambulatory Limitations: No Limitations - History of Present Illness Initial Comments: 58-year-old male did yard work yesterday afternoon and states that at about 7:00 she noticed some weakness and numbness of his right upper extremity. He states he had difficulty holding his cell phone. He states the symptoms got better but then got worse this morning at about 5 AM. Eventually came to the hospital stating that he had persistent weakness and numbness of his right upper ext remity. Patient was seen here in 2018 when he was status post a syncopal episode. He had an MR that was consistent with an acute left posterior parietal stroke. Patient states that he did not know that he had stroke symptoms at that time. He does state that he has problems with his left peripheral vision when he tries and has to turn his head to the right to correct this. He states that the n eurologist showed him "5 mini strokes" at that time. The patient denies ever having any previous right upper extremity symptoms. -: Gradual Location: right arm Presenting Symptoms: Present: Weak/Paralyzed One Side History of same: Yes Place: home Severity: moderate Quality: weak, numb Improves With: none Worsens With: none On Anticoagulants: No Context: gradual onset Associated Symptoms: denies other symptoms Treatments Prior to Arrival: none - Related Data Home Medications: Home Medications Medication Instructions Recorded Confirmed Last Taken Acetaminophen [Acetaminophen TAB] 500 mg PO TID PRN 04/28/18 04/28/18 Unknown Carvedilol [Coreg] 25 mg PO BID 04/28/18 04/28/18 04/28/18 Cholecalciferol (Vitamin D3) 1,000 unit PO QDAY 04/28/18 04/28/18 Unknown [Vitamin D3] Citalopram Hydrobromide [Celexa] 40 mg PO QAM 04/28/18 04/28/18 04/28/18 Insulin Aspart [NovoLOG Flexpen] 26 units SUB-Q AC 04/28/18 04/28/18 04/28/18 Insulin Glargine,Hum.rec.anlog 86 units SUB-Q QAM 04/28/18 04/28/18 Unknown [Lantus Solostar] Rosuvastatin Calcium [Crestor] 40 mg PO QDAY 04/28/18 04/28/18 04/28/18 amLODIPine [Norvasc] 10 mg PO DAILY 04/28/18 04/28/18 Unknown hydroCHLOROthiazide [HCTZ] 25 mg PO QAM 04/28/18 04/28/18 04/28/18 Previous Rx's Medication Instructions Recorded Last Taken Type Aspirin 325 mg PO DAILY #30 tablet 01/21/17 04/28/18 Rx Lisinopril [Zestril TAB] 40 mg PO QDAY #30 tablet 01/21/17 04/28/18 Rx Pregabalin [Lyrica] 150 mg PO TID #90 capsule 01/21/17 04/28/18 Rx Insulin Glargine [Lantus VIAL] 86 units SUB-Q QHS units 04/30/18 Unknown Rx Allergies/Adverse Reactions: Allergies Allergy/AdvReac Type Severity Reaction Status Date / Time No Known Allergies Allergy Verified 05/18/16 13:24 ED Review of Systems ROS: Stated complaint: RT ARM NUMBNESS Other details as noted in HPI Constitutional: denies: chills, fever Eyes: denies: eye pain, eye discharge, vision change ENT: denies: ear pain, throat pain Respiratory: denies: cough, shortness of breath, wheezing Cardiovascular: denies: chest pain, palpitations Endocrine: no symptoms reported Gastrointestinal: denies: abdominal pain, nausea, diarrhea Genitourinary: denies: urgency, dysuria Musculoskeletal: denies: back pain, joint swelling, arthralgia Skin: denies: rash, lesions Neurological: as per HPI, weakness, numbness. denies: headache, paresthesias Psychiatric: denies: anxiety, depression Hematological/Lymphatic: denies: easy bleeding, easy bruising ED Past Medical Hx - Past Medical History Previous Medical History?: Yes Hx Hypertension: Yes Hx CVA: Yes ("5 mini strokes") Hx Diabetes: Yes Hx Arthritis: Yes (Degenerative Arthritis C4-8) Hx Kidney Stones: Yes Hx Asthma: No Hx COPD: No - Surgical History Past Surgical History?: Yes Hx Coronary Stent: Yes Additional Surgical History: testicle removed in 1969 - Social History Smoking Status: Never Smoker Substance Use Type: None - Medications Home Medications: Home Medications Medication Instructions Recorded Confirmed Last Taken Type Aspirin 325 mg PO DAILY #30 tablet 01/21/17 04/28/18 04/28/18 Rx Lisinopril [Zestril TAB] 40 mg PO QDAY #30 tablet 01/21/17 04/28/18 04/28/18 Rx Pregabalin [Lyrica] 150 mg PO TID #90 capsule 01/21/17 04/28/18 04/28/18 Rx Acetaminophen [Acetaminophen TAB] 500 mg PO TID PRN 04/28/18 04/28/18 Unknown History Carvedilol [Coreg] 25 mg PO BID 04/28/18 04/28/18 04/28/18 History Cholecalciferol (Vitamin D3) 1,000 unit PO QDAY 04/28/18 04/28/18 Unknown History [Vitamin D3] Citalopram Hydrobromide [Celexa] 40 mg PO QAM 04/28/18 04/28/18 04/28/18 History Insulin Aspart [NovoLOG Flexpen] 26 units SUB-Q AC 04/28/18 04/28/18 04/28/18 History Insulin Glargine,Hum.rec.anlog 86 units SUB-Q QAM 04/28/18 04/28/18 Unknown History [Lantus Solostar] Rosuvastatin Calcium [Crestor] 40 mg PO QDAY 04/28/18 04/28/18 04/28/18 History amLODIPine [Norvasc] 10 mg PO DAILY 04/28/18 04/28/18 Unknown History hydroCHLOROthiazide [HCTZ] 25 mg PO QAM 04/28/18 04/28/18 04/28/18 History Insulin Glargine [Lantus VIAL] 86 units SUB-Q QHS units 04/30/18 Unknown Rx ED Neuro Physical Exam - General Limitations: No Limitations General appearance: alert Suspected Stroke: Yes (possible) - Head Head exam: Present: atraumatic, normocephalic - Eye Eye exam: Present: normal appearance, PERRL, EOMI. Absent: scleral icterus - ENT ENT exam: Present: mucous membranes moist - Neck Neck exam: Present: normal inspection - Respiratory Respiratory exam: Present: normal lung sounds bilaterally. Absent: respiratory distress - Cardiovascular Cardiovascular Exam: Present: regular rate, normal rhythm. Absent: systolic murmur, diastolic murmur, rubs, gallop - GI/Abdominal GI/Abdominal exam: Present: soft, normal bowel sounds. Absent: distended, tenderness, guarding, rebound, rigid - Rectal Rectal exam: Present: deferred - Extremities Exam Extremities exam: Present: normal inspection - Back Exam Back exam: Present: normal inspection - Neurological Exam Neurological exam: Present: alert, oriented X3, CN II-XII intact. Absent: motor sensory deficit (not grossly evident) - NIHSS Assessment Interval: Baseline 1a. Level of Consciousness: alert/keenly responsive 1b. LOC Questions: answers both correctly 1c. LOC Commands: performs tasks correctly 2. Best Gaze: normal 3. Visual: no visual loss (visual field was equal by confrontation) 4. Facial Palsy: normal symmetrical movement 5b. Motor Arm Right: no drift 5a. Motor Arm Left: no drift 6a. Motor Leg Left: no drift 6b. Motor Leg Right: no drift 7. Limb Ataxia: absent 8. Sensory: mild/moderate sensory loss (2. discrimination was normal position sense was normal subjective fine touch difference only) 9. Best Language: no aphasia 10. Dysarthria: normal 11. Extinction/Inattention: no abnormality Total Score: 1 Stroke Severity: Minor Stroke - Psychiatric Psychiatric exam: Present: normal affect, normal mood - Skin Skin exam: Present: warm, dry, intact, normal color. Absent: rash ED Course Vital Signs 06/04/19 06/04/19 06/04/19 07:43 09:09 09:21 Temperature 98.0 F 97.8 F Pulse Rate 81 Respiratory 16 Rate Blood Pressure 155/99 O2 Sat by Pulse 97 20 L Oximetry - Reevaluation(s) Reevaluation #1: Discussed with neurologist. I agree with the neurologist assessment that this may be a plexus injury rather than a stroke. Indeed it may be neither. Neurolo gist has recommended a stroke workup inpatient. Discussed with hospitalist and admitted. 06/04/19 09:30 - Lab Data Result diagrams: 06/04/19 08:04 06/04/19 08:04 Lab Results 06/04/19 06/04/19 06/04/19 Range/Units 08:04 08:04 08:04 WBC 7.2 (4.5-11.0) K/mm3 RBC 5.13 H (3.65-5.03) M/mm3 Hgb 14.7 (11.8-15.2) gm/dl Hct 43.8 (35.5-45.6) % MCV 85 (84-94) fl MCH 29 (28-32) pg MCHC 34 (32-34) % RDW 14.6 (13.2-15.2) % Plt Count 261 (140-440) K/mm3 Lymph % (Auto) 30.3 (13.4-35.0) % Irion % (Auto) 7.3 (0.0-7.3) % Eos % (Auto) 2.2 (0.0-4.3) % Baso % (Auto) 1.1 (0.0-1.8) % Lymph # 2.2 (1.2-5.4) K/mm3 Irion # 0.5 (0.0-0.8) K/mm3 Eos # 0.2 (0.0-0.4) K/mm3 Baso # 0.1 (0.0-0.1) K/mm3 Seg Neutrophils % 59.1 (40.0-70.0) % Seg Neutrophils # 4.3 (1.8-7.7) K/mm3 PT 13.4 (12.2-14.9) Sec. INR 1.05 (0.87-1.13) APTT 34.0 (24.2-36.6) Sec. Thrombin Time (15.1-19.6) Sec. Sodium 143 (137-145) mmol/L Potassium 3.7 (3.6-5.0) mmol/L Chloride 102.2 (98-107) mmol/L Carbon Dioxide 24 (22-30) mmol/L Anion Gap 21 mmol/L BUN 16 (9-20) mg/dL Creatinine 1.0 (0.8-1.5) mg/dL Estimated GFR > 60 ml/min BUN/Creatinine Ratio 16 % Glucose 121 H (75-100) mg/dL Calcium 9.3 (8.4-10.2) mg/dL Troponin T < 0.010 (0.00-0.029) ng/mL 06/04/19 Range/Units 08:04 WBC (4.5-11.0) K/mm3 RBC (3.65-5.03) M/mm3 Hgb (11.8-15.2) gm/dl Hct (35.5-45.6) % MCV (84-94) fl MCH (28-32) pg MCHC (32-34) % RDW (13.2-15.2) % Plt Count (140-440) K/mm3 Lymph % (Auto) (13.4-35.0) % Irion % (Auto) (0.0-7.3) % Eos % (Auto) (0.0-4.3) % Baso % (Auto) (0.0-1.8) % Lymph # (1.2-5.4) K/mm3 Irion # (0.0-0.8) K/mm3 Eos # (0.0-0.4) K/mm3 Baso # (0.0-0.1) K/mm3 Seg Neutrophils % (40.0-70.0) % Seg Neutrophils # (1.8-7.7) K/mm3 PT (12.2-14.9) Sec. INR (0.87-1.13) APTT (24.2-36.6) Sec. Thrombin Time 19.2 (15.1-19.6) Sec. Sodium (137-145) mmol/L Potassium (3.6-5.0) mmol/L Chloride (98-107) mmol/L Carbon Dioxide (22-30) mmol/L Anion Gap mmol/L BUN (9-20) mg/dL Creatinine (0.8-1.5) mg/dL Estimated GFR ml/min BUN/Creatinine Ratio % Glucose (75-100) mg/dL Calcium (8.4-10.2) mg/dL Troponin T (0.00-0.029) ng/mL - EKG Data -: EKG Interpreted by Pr EKG shows normal: sinus rhythm, axis, intervals, QRS complexes, ST-T waves Rate: normal, tachycardia, bradycardia Interpretation: no acute changes - Radiology Data Discussed with Radiologist NAF - Thrombolytic Inclusion/Exclusion Thrombolytic Exclusion Criteria: Symptom Onset > 3 Hours Thrombolytic Contraindications: Rapidily Improving s/s Critical care attestation.: If time is entered above; I have spent that time in minutes in the direct care of this critically ill patient, excluding procedure time. ED Disposition Clinical Impression: Stroke Qualifiers: CVA mechanism: unspecified Qualified Code(s): I63.9 - Cerebral infarction, unspecified Disposition: DC-09 OP ADMIT IP TO THIS HOSP Is pt being admited?: Yes Does the pt Need Aspirin: Yes Condition: Stable Referrals: PRIMARY CARE, [Primary Care Provider] - 3-5 Days Time of Disposition: 09:33
[2019-06-04] MEDS ORDERED: ASPIRIN PO ONE (09:33)
[2019-06-04] MEDS ORDERED: ASPIRIN ONE (10:37)
--- NOTE | 2019-06-04 11:49 | History and Physical Report ---
History of Present Illness Date of examination: 06/04/19 Date of admission: 06/04/19 09:34 Chief complaint: right UE numbness History of present illness: 58-year-old male with history of coronary artery disease diabetes hypertension hyperlipidemia who presented to the hospital with some weakness and numbness on the right upper extremity. Patient states that he was doing yard work yesterday afternoon and states that at about 7:00 he noticed some weakness and numbness of his right upper extremity. He states he had difficulty holding his cell phone. He states the symptoms got better but then got worse again this morning at about 5 AM. Eventually came to the hospital pain for further evaluation and management. Also note Patient was seen here in 2018 for a syncopal episode. He had an MRI that was consistent with an acute left posterior parietal stroke. Patient states that he did not know that he had stroke symptoms at that time. He does state that he has problems with his left peripheral vision and has to turn his head to the right to correct this. Patient denies any difficulties BH, swallowing, or any other focal weaknesses. CT scan in the ER did not show any acute intracranial process. Patient was seen by [facility] and moises d to admit the patient for full stroke workup. Patient also denies any chest pain and difficulty breathing. Past History Past Medical History: CAD, diabetes on insulin, hypertension, hyperlipidemia Past Surgical History: Other (Cardiac stent placement) Social history: , lives with family. denies: smoking, alcohol abuse, prescription drug abuse Family history: diabetes, hypertension Review of System: Constitutional: no fever, no chills, no weight loss Ears, eyes, nose, mouth and throat: no nasal congestion, no nasal discharge, no sinus pressure, no vision change, no red eye. Neck: No neck pain or rigidity. Cardiovascular: No chest pain, no orthopnea, no palpitations, no leg swelling Respiratory: No shortness of breath, no cough, no congestion, no wheezing Gastrointestinal: no abdominal pain, no nausea, no vomiting Genitourinary : no dysuria, no hematuria Musculoskeletal: no joint swelling or muscle ache Integumentary: no rash, no pruritis Neurological: + numbness on right upper extremity, no tingling, no facial droop, no focal deficits Endocrine: no cold or heat intolerance, no polyuria or polydipsia Hematologic/Lymphatic: no easy bruising, no easy bleeding, no gland swelling Allergic/Immunologic: no urticaria, no angioedema. Medications and Allergies Allergies Allergy/AdvReac Type Severity Reaction Status Date / Time No Known Allergies Allergy Verified 05/18/16 13:24 Home Medications Medication Instructions Recorded Confirmed Last Taken Type Aspirin 325 mg PO DAILY #30 tablet 01/21/17 06/05/19 04/28/18 Rx Lisinopril [Zestril TAB] 40 mg PO QDAY #30 tablet 01/21/17 06/05/19 04/28/18 Rx Pregabalin [Lyrica] 150 mg PO TID #90 capsule 01/21/17 06/05/19 04/28/18 Rx Acetaminophen [Acetaminophen TAB] 500 mg PO TID PRN 04/28/18 06/05/19 Unknown History Carvedilol [Coreg] 25 mg PO BID 04/28/18 06/05/19 04/28/18 History Cholecalciferol (Vitamin D3) 1,000 unit PO QDAY 04/28/18 06/05/19 Unknown History [Vitamin D3] Citalopram Hydrobromide [Celexa] 40 mg PO QAM 04/28/18 06/05/19 04/28/18 History Insulin Aspart [NovoLOG Flexpen] 26 units SUB-Q AC 04/28/18 06/05/19 04/28/18 History Insulin Glargine,Hum.rec.anlog 86 units SUB-Q QAM 04/28/18 06/05/19 Unknown History [Lantus Solostar] Rosuvastatin Calcium [Crestor] 40 mg PO QDAY 04/28/18 06/05/19 04/28/18 History amLODIPine [Norvasc] 10 mg PO DAILY 04/28/18 06/05/19 Unknown History hydroCHLOROthiazide [HCTZ] 25 mg PO QAM 04/28/18 06/05/19 04/28/18 History Insulin Glargine [Lantus VIAL] 86 units SUB-Q QHS units 04/30/18 06/05/19 Unknown Rx Exam - Physical Exam Narrative exam: GENERAL: well-developed and well-nourished -[place]wegian male lying on bed appeared to be in no discomfort. HEENT: Normocephalic. Atraumatic. No conjunctival congestion or icterus. Patient has moist mucous membranes. NECK: Supple. Trachea midline. CHEST/LUNGS: Clear to auscultated bilaterally, breathing nonlabored. No wheezes crackles or rhonchi. HEART/CARDIOVASCULAR: Regular in rate and rhythm. S1 and S2 positive. ABDOMEN: Abdomen is soft, nontender. Patient has normal bowel sounds. SKIN: There is no rash. Warm and dry. NEURO: No focal motor deficit. Follows command. Cranial nerves intact MUSCULOSKELETAL: No joint effusion or tenderness. EXTRIMITY: No edema, no cyanosis or clubbing. PSYCH: Cooperative. - Constitutional Vitals: Temp Pulse Resp BP Pulse Ox 97.8 F 64 14 163/96 97 06/04/19 09:21 06/04/19 10:15 06/04/19 10:15 06/04/19 10:15 06/04/19 10:15 Results - Labs CBC & Chem 7: 06/04/19 08:04 06/04/19 08:04 Labs: Abnormal lab results 06/04/19 06/04/19 Range/Units 08:04 08:04 RBC 5.13 H (3.65-5.03) M/mm3 Glucose 121 H (75-100) mg/dL - Imaging and Cardiology CT Scan - head: report reviewed (no acute abnormality) Assessment and Plan Right upper extremity numbness - Need to rule out acute CVA - We will admit the patient to remote telemetry - We'll place on aspirin and statin, will consult neurology - CT scan of the head obtained in the ER and shows no acute abnormality - We will get MRI of the head, MRA head neck, 2-D echocardiogram - We will also get hemoglobin A1c level and fasting lipid panel - Allow permissive hypertension, will hold BP meds if patient is taking any at home - Consult PTOT and speech therapist - monitor blood glucose and place on sliding scale of insulin, - Further management will be based on pending lab results and imaging studies Hypertension, uncontrolled - Allow permissive hypertension for now - IV hydralazine if his SBP more than 180 and diastolic more than 100 - We'll also resume [facility] Diabetes mellitus type 2 - Check A1c, continue SSI, long-acting insulin and consistent carb diet Hyperlipidemia, continue statin History of coronary artery disease - Continue aspirin and statin, supportive care - We'll place on GI prophylaxis to avoid stress ulcer - Place on DVT prophylaxis CT head: No acute/subacute infarction. No change in the chronic changes in the left superior inferior parietal lobules and in the left posterior perisylvian atrophy.
[2019-06-04] MEDS ORDERED: REGLAN PO PRN (12:02)
[2019-06-04] MEDS ORDERED: SODIUM CHLORIDE FLUSH SYRINGE 10 ML IV PRN (12:02)
[2019-06-04] MEDS ORDERED: PHENERGAN PR PRN (12:02)
[2019-06-04] MEDS ORDERED: ZOFRAN IV PRN (12:02)
[2019-06-04] MEDS ORDERED: DULCOLAX PR PRN (12:02)
[2019-06-04] MEDS ORDERED: TYLENOL PO PRN (12:02)
[2019-06-04] MEDS ORDERED: MILK OF MAGNESIA PO PRN (12:02)
[2019-06-04] MEDS ORDERED: APRESOLINE IV PRN (12:55)
[2019-06-04] MEDS ORDERED: NON-FORMULARY (Pregabalin [Lyrica] 150 MG) PO SCH (14:00)
[2019-06-04] MEDS: VITAMIN D3 PO SCH (15:01)
[2019-06-04] MEDS: celeXA PO SCH (15:01)
[2019-06-04] MEDS: ZESTRIL PO SCH (15:01)
[2019-06-04] MEDS: PREGABALIN PO SCH ×2 (15:02→20:48)
[2019-06-04] MEDS: NORVASC PO SCH (15:06)
[2019-06-04] MEDS: HCTZ PO SCH (15:06)
[2019-06-04] MEDS: PEPCID PO SCH ×2 (15:06→22:21)
[2019-06-04] MEDS: HumuLIN R SUB-Q SCH ×2 (17:52→22:20)
[2019-06-04] MEDS: COREG PO SCH (22:20)
[2019-06-05 05:16] LABS: Chol/HDL Ratio 4.72 %
[2019-06-05] MEDS: HumuLIN R SUB-Q SCH ×4 (09:17→21:48)
[2019-06-05] MEDS: PREGABALIN PO SCH ×3 (09:19→21:47)
[2019-06-05] MEDS: NORVASC PO SCH (09:20)
[2019-06-05] MEDS: PEPCID PO SCH ×2 (09:20→21:48)
[2019-06-05] MEDS: ZESTRIL PO SCH (09:20)
[2019-06-05] MEDS: VITAMIN D3 PO SCH (09:20)
[2019-06-05] MEDS: celeXA PO SCH (09:20)
[2019-06-05] MEDS: ASPIRIN PO SCH (09:20)
[2019-06-05] MEDS: HCTZ PO SCH (09:20)
[2019-06-05] MEDS: COREG PO SCH ×2 (09:21→21:48)
[2019-06-05] MEDS ORDERED: NON-FORMULARY (Citalopram Hydrobromide [Celexa] 40 MG) PO SCH (10:00)
[2019-06-05] MEDS ORDERED: NON-FORMULARY (Cholecalciferol (Vitamin D3) [Vitamin D3] 1,000 UNIT) PO SCH (10:00)
--- NOTE | 2019-06-05 14:53 | Progress Note ---
Assessment and Plan Right upper extremity numbness - Need to rule out acute CVA -Continue to monitor the patient with remote telemetry -Continue aspirin and statin, consulted neurology -will follow recommendation - CT scan of the head obtained in the ER and shows no acute abnormality -Pending MRI of the head, MRA head neck, 2-D echocardiogram showed preserved EF - hemoglobin A1c level 11.1 - Follow PTOT - Further management will be based on pending lab results and imaging studies Hypertension, uncontrolled - Allowed permissive hypertension following admission - On IV hydralazine if his SBP more than 180 and diastolic more than 100 - Resumed his home medications, will continue to monitor his blood pressure practice medications as needed Diabetes mellitus type 2 - Check A1c, continue SSI, long-acting insulin and consistent carb diet Hyperlipidemia, continue statin History of coronary artery disease - Continue aspirin and statin, supportive care - We'll place on GI prophylaxis to avoid stress ulcer - Place on DVT prophylaxis Brief history: 58-year-old male with history of coronary artery disease diabetes hypertension hyperlipidemia who presented to the hospital with some weakness and numbness on the right upper extremity. Radiological data: CT head: No acute/subacute infarction. No change in the chronic changes in the left superior inferior parietal lobules and in the left posterior perisylvian atrophy. MRI head/MRA head neck - pending 2-D echo: Preserved EF Subjective Date of service: 06/05/19 Interval history: Patient seen and examined. Medical records and medication list reviewed. No acute event overnight noted by the RN. Patient denies any chest pain or difficulty breathing. Patient is tolerating diet. Patient still complains of right hand numbness Discussed plan of care at bedside with patient. Objective - Exam Narrative Exam: GENERAL: well-developed and well-nourished -[place]ovenian male lying on bed appeared to be in no discomfort. HEENT: Normocephalic. Atraumatic. No conjunctival congestion or icterus. Patient has moist mucous membranes. NECK: Supple. Trachea midline. CHEST/LUNGS: Clear to auscultated bilaterally, breathing nonlabored. No wheezes crackles or rhonchi. HEART/CARDIOVASCULAR: Regular in rate and rhythm. S1 and S2 positive. ABDOMEN: Abdomen is soft, nontender. Patient has normal bowel sounds. SKIN: There is no rash. Warm and dry. NEURO: No focal motor deficit. Follows command. Cranial nerves intact MUSCULOSKELETAL: No joint effusion or tenderness. EXTRIMITY: No edema, no cyanosis or clubbing. PSYCH: Cooperative. - Constitutional Vitals: Vital Signs - 12hr 06/05/19 06/05/19 06/05/19 04:11 09:20 09:21 Temperature 97.6 F Pulse Rate 75 80 80 Respiratory 18 Rate Blood Pressure 124/73 141/81 141/81 O2 Sat by Pulse 93 Oximetry 06/05/19 12:11 Temperature 98.5 F Pulse Rate 82 Respiratory 16 Rate Blood Pressure 149/88 O2 Sat by Pulse 94 Oximetry - Labs CBC & Chem 7: 06/04/19 08:04 06/04/19 08:04 Labs: Abnormal lab results 06/04/19 06/04/19 06/05/19 Range/Units 16:54 22:05 04:16 POC Glucose 216 H 413 H (70-105) Hemoglobin A1c 11.0 H (4-6) % HDL Cholesterol (40-59) mg/dL 06/05/19 06/05/19 06/05/19 Range/Units 04:16 08:28 12:22 POC Glucose 214 H 293 H (70-105) Hemoglobin A1c (4-6) % HDL Cholesterol 36 L (40-59) mg/dL
--- NOTE | 2019-06-05 17:56 | Magnetic Resonance Report ---
MRI BRAIN WITHOUT CONTRAST INDICATION / CLINICAL INFORMATION: MAIN: stroke, right side weakness and numbness. TECHNIQUE: Multiplanar, multisequence MR images of the brain were obtained. COMPARISON: The study is compared to the previous MRI of 04/29/2018. FINDINGS: BRAIN / INTRACRANIAL CONTENTS: There are multiple scattered foci of acute infarction involving subcor tical regions along the left frontal and parietal lobes at. A couple small foci are also seen along t he left parieto-occipital region. The largest of foci include the left precentral gyrus measuring jerson roximately 5-6 mm in greatest transverse dimension. There is otherwise mild cerebral white matter disease on the FLAIR imaging most consistent with chron ic microvascular angiopathy. Findings are most notably involving left parietal lobe and correlate wit h the previous study at. The ventricular system remains unchanged in size and configuration. No extra -axial fluid collections are identified. CRANIOCERVICAL JUNCTION: No significant abnormality. VASCULAR FLOW-VOIDS: The distal internal carotid arteries and vertebrobasilar system grossly demonstr ate appropriate signal voids. The MR a head will be dictated separately. ORBITS: No significant abnormality of visualized orbits. SINUSES / MASTOIDS: There are continued mild inflammatory changes involving the inferior maxillary an d right sphenoid sinuses at. ADDITIONAL FINDINGS: None. IMPRESSION: 1. There are multiple scattered foci of acute infarction involving the subcortical regions of the lef t cerebral hemisphere as detailed above, including the pre and postcentral gyri.. Signer Name: Norbert Roche MD Signed: 06/05/2019 5:52 PM Workstation Name: [id number]
--- NOTE | 2019-06-05 18:00 | Magnetic Resonance Report ---
MRA head without contrast. CLINICAL HISTORY: Cerebrovascular accident Findings a colon the motion degrades the image quality at. However, there is continued a irregularity involving distal internal carotid arteries which may reflect component of underlying atherosclerotic disease at. The findings at may be exacerbated by the degree of motion though there appears to be mi ld segmental narrowing. There is also mild irregularity of the distal cerebral branches are, particularly the left [employer]ING [employer] which may reflect a mild atherosclerotic disease at. The finding to correlate with the previous MRA of 2017. There is no definitive MRA evidence of intracranial aneurysm. IMPRESSION: There is be continued mild atherosclerotic disease involving distal internal carotid arteries and lef t [employer] as described at. Signer Name: Norbert Roche MD Signed: 06/05/2019 5:55 PM Workstation Name: [id number]
--- NOTE | 2019-06-05 18:03 | Magnetic Resonance Report ---
MR a neck without contrast CLINICAL HISTORY: Cerebrovascular accident FINDINGS: motion significantly degrades the image quality. There is irregularity involving the left c arotid bifurcation proximal left ICA compatible with mild atherosclerotic disease at. There appears b e mild, approximately 50% stenosis by NASCET criteria on the source images. However, the findings may be exacerbated by the motion and correlation with carotid ultrasound may be considered at. There is no significant stenosis involving the right carotid bifurcation. The vertebral arteries appe ar to demonstrate appropriate caliber without significant stenosis. IMPRESSION: There is mild atherosclerotic plaque involving proximal left ICA with mild stenosis by NASCET criteri a as detailed above. Signer Name: Norbert Roche MD Signed: 06/05/2019 5:59 PM Workstation Name: [id number]
[2019-06-06] MEDS: HumuLIN R SUB-Q SCH ×3 (07:30→16:30)
[2019-06-06] MEDS: PREGABALIN PO SCH ×2 (08:41→13:24)
[2019-06-06] MEDS: ASPIRIN PO SCH (10:50)
[2019-06-06] MEDS: ZESTRIL PO SCH (10:50)
[2019-06-06] MEDS: HCTZ PO SCH (10:50)
[2019-06-06] MEDS: PEPCID PO SCH (10:50)
[2019-06-06] MEDS: VITAMIN D3 PO SCH (10:50)
[2019-06-06] MEDS: celeXA PO SCH (10:50)
[2019-06-06] MEDS: NORVASC PO SCH (10:51)
[2019-06-06] MEDS: COREG PO SCH (10:51)
[2019-06-06] MEDS ORDERED: NON-FORMULARY (Insulin Glargine,Hum.Rec.Anlog [Lantus Solostar] 20 UNITS) SUB-Q SCH (12:21)
--- NOTE | 2019-06-06 12:26 | Progress Note ---
Assessment and Plan Right upper extremity numbness -Continue to monitor the patient with remote telemetry - CT scan of the head obtained in the ER and shows no acute abnormality - MRI brain showed multiple scattered acute CVA -Continue aspirin and statin, consulted neurology -will follow recommendation, will add plavix - Pending MRI of the head, MRA head neck, 2-D echocardiogram showed preserved EF - hemoglobin A1c level 11.1 - Follow PTOT recommendation - obtain TSH and t4 level Hypertension, uncontrolled - Allowed permissive hypertension following admission - On IV hydralazine if his SBP more than 180 and diastolic more than 100 - Resumed his home medications, will continue to monitor his blood pressure practice medications as needed Diabetes mellitus type 2 - Check A1c, continue SSI, long-acting insulin and consistent carb diet Hyperlipidemia, continue statin History of coronary artery disease - Continue aspirin and statin, supportive care - We'll place on GI prophylaxis to avoid stress ulcer - Place on DVT prophylaxis Brief history: 58-year-old male with history of coronary artery disease diabetes hypertension hyperlipidemia who presented to the hospital with some weakness and numbness on the right upper extremity. Radiological data: CT head: No acute/subacute infarction. No change in the chronic changes in the left superior inferior parietal lobules and in the left posterior perisylvian atrophy. MRI head There are multiple scattered foci of acute infarction involving subcortical regions along the left frontal and parietal lobes at. A couple small foci are also seen along the left parieto-occipital region. The largest of foci include the left precentral gyrus measuring approximately 5-6 mm in greatest transverse dimension. There is otherwise mild cerebral white matter disease on the FLAIR imaging most consistent with chronic microvascular angiopathy. Findings are most notably involving left parietal lobe and correlate with the previous study at. The ventricular system remains unchanged in size and configuration. MRA head neck : Mild atherosclerotic disease 2-D echo: Preserved EF Subjective Date of service: 06/06/19 Interval history: Patient seen and examined. Medical records and medication list reviewed. No acute event overnight noted by the RN. Patient denies any chest pain or difficulty breathing. Patient is tolerating diet. Patient still complains of right hand numbness Discussed plan of care at bedside with patient. Objective - Exam Narrative Exam: GENERAL: well-developed and well-nourished -Togolese male lying on bed appeared to be in no discomfort. HEENT: Normocephalic. Atraumatic. No conjunctival congestion or icterus. Patient has moist mucous membranes. NECK: Supple. Trachea midline. CHEST/LUNGS: Clear to auscultated bilaterally, breathing nonlabored. No wheezes crackles or rhonchi. HEART/CARDIOVASCULAR: Regular in rate and rhythm. S1 and S2 positive. ABDOMEN: Abdomen is soft, nontender. Patient has normal bowel sounds. SKIN: There is no rash. Warm and dry. NEURO: No focal motor deficit. Follows command. Cranial nerves intact MUSCULOSKELETAL: No joint effusion or tenderness. EXTRIMITY: No edema, no cyanosis or clubbing. PSYCH: Cooperative. - Constitutional Vitals: Vital Signs - 12hr 06/06/19 06/06/19 06/06/19 05:08 10:50 11:40 Temperature 98.2 F 98.8 F Pulse Rate 118 H 76 Respiratory 20 16 Rate Blood Pressure 145/91 151/88 129/78 O2 Sat by Pulse 93 Oximetry - Labs CBC & Chem 7: 06/04/19 08:04 06/04/19 08:04 Labs: Abnormal lab results 06/05/19 06/05/19 06/05/19 Range/Units 12:22 15:52 21:20 POC Glucose 293 H 302 H 377 H (70-105) 06/06/19 Range/Units 07:55 POC Glucose 284 H (70-105)
[2019-06-06] MEDS ORDERED: PLAVIX PO SCH (13:00)
[2019-06-06] MEDS ORDERED: LANTUS SUB-Q SCH ×2 (14:30)
--- NOTE | 2019-06-06 16:17 | Consultation ---
History of Present Illness Consult date: 06/06/19 History of present illness: went over the CT/ MRI really multiple infarcts likely diabetic related plan to check over the fibrinogen agree with the use of plavix spoke to Dr. Navarro Medications and Allergies Allergies Allergy/AdvReac Type Severity Reaction Status Date / Time No Known Allergies Allergy Verified 05/18/16 13:24 Home Medications Medication Instructions Recorded Confirmed Last Taken Type Aspirin 325 mg PO DAILY #30 tablet 01/21/17 06/05/19 04/28/18 Rx Lisinopril [Zestril TAB] 40 mg PO QDAY #30 tablet 01/21/17 06/05/19 04/28/18 Rx Pregabalin [Lyrica] 150 mg PO TID #90 capsule 01/21/17 06/05/19 04/28/18 Rx Acetaminophen [Acetaminophen TAB] 500 mg PO TID PRN 04/28/18 06/05/19 Unknown History Carvedilol [Coreg] 25 mg PO BID 04/28/18 06/05/19 04/28/18 History Cholecalciferol (Vitamin D3) 1,000 unit PO QDAY 04/28/18 06/05/19 Unknown History [Vitamin D3] Citalopram Hydrobromide [Celexa] 40 mg PO QAM 04/28/18 06/05/19 04/28/18 History Insulin Aspart [NovoLOG Flexpen] 26 units SUB-Q AC 04/28/18 06/05/19 04/28/18 History Insulin Glargine,Hum.rec.anlog 86 units SUB-Q QAM 04/28/18 06/05/19 Unknown History [Lantus Solostar] Rosuvastatin Calcium [Crestor] 40 mg PO QDAY 04/28/18 06/05/19 04/28/18 History amLODIPine [Norvasc] 10 mg PO DAILY 04/28/18 06/05/19 Unknown History hydroCHLOROthiazide [HCTZ] 25 mg PO QAM 04/28/18 06/05/19 04/28/18 History Insulin Glargine [Lantus VIAL] 86 units SUB-Q QHS units 04/30/18 06/05/19 Unknown Rx Active Meds: Active Medications Acetaminophen (Tylenol) 650 mg PO Q4H PRN PRN Reason: Pain, Mild (1-3) Last Admin: 06/05/19 21:47 Dose: 650 mg Documented by: Amlodipine Besylate (Norvasc) 10 mg PO DAILY [facility] Last Admin: 06/06/19 10:51 Dose: 10 mg Documented by: Aspirin (Aspirin) 325 mg PO QDAY [facility] Last Admin: 06/06/19 10:50 Dose: 325 mg Documented by: Atorvastatin Calcium (Lipitor) 80 mg PO QHS [facility] Last Admin: 06/05/19 21:47 Dose: 80 mg Documented by: Bisacodyl (Dulcolax) 10 mg IA QDAY PRN PRN Reason: Constipation Carvedilol (Coreg) 25 mg PO BID [facility] Last Admin: 06/06/19 10:51 Dose: 25 mg Documented by: Cholecalciferol (Vitamin D3) 1,000 unit PO QDAY [facility] Last Admin: 06/06/19 10:50 Dose: 1,000 unit Documented by: Citalopram Hydrobromide (Celexa) 40 mg PO QDAY [facility] Last Admin: 06/06/19 10:50 Dose: 40 mg Documented by: Clopidogrel Bisulfate (Plavix) 75 mg PO QDAY [facility] Last Admin: 06/06/19 13:18 Dose: 75 mg Documented by: Famotidine (Pepcid) 20 mg PO BID [facility] Last Admin: 06/06/19 10:50 Dose: 20 mg Documented by: Hydralazine HCl (Apresoline) 10 mg IV Q30MIN PRN PRN Reason: Hypertension Hydrochlorothiazide (Hctz) 25 mg PO QAM [facility] Last Admin: 06/06/19 10:50 Dose: 25 mg Documented by: Insulin Glargine (Lantus) [facility] Insulin Human Lispro (Humalog) 10 unit SUB-Q [facility] Insulin Human Regular (Humulin R) 0 units SUB-Q [facility]; Protocol Last Admin: 06/06/19 12:00 Dose: 3 units Documented by: Lisinopril (Zestril) 40 mg PO QDAY [facility] Last Admin: 06/06/19 10:50 Dose: 40 mg Documented by: Magnesium Hydroxide (Milk Of Magnesia) 30 ml PO Q4H PRN PRN Reason: Constipation Metoclopramide HCl (Reglan) 10 mg PO Q6H PRN PRN Reason: Nausea And Vomiting Ondansetron HCl (Zofran) 4 mg IV Q8H PRN PRN Reason: Nausea And Vomiting Pregabalin (Pregabalin) 150 mg PO TID [facility] Last Admin: 06/06/19 13:24 Dose: 150 mg Documented by: Promethazine HCl (Phenergan) 25 mg IA Q6H PRN PRN Reason: Nausea And Vomiting Sodium Chloride (Sodium Chloride Flush Syringe 10 Ml) 10 ml IV PRN PRN PRN Reason: LINE FLUSH Physical Examination - Vital Signs Vital Signs: Vital Signs Temp Pulse Resp BP Pulse Ox 98.0 F 81 16 155/99 97 06/04/19 07:43 06/04/19 07:43 06/04/19 07:43 06/04/19 07:43 06/04/19 07:43 Results - Laboratory Findings CBC and BMP: 06/04/19 08:04 06/04/19 08:04 Abnormal Lab Findings: Abnormal Labs 06/04/19 06/04/19 06/04/19 08:04 08:04 08:14 RBC 5.13 H Glucose 121 H POC Glucose 108 H Hemoglobin A1c HDL Cholesterol 06/04/19 06/04/19 06/05/19 16:54 22:05 04:16 RBC Glucose POC Glucose 216 H 413 H Hemoglobin A1c 11.0 H HDL Cholesterol 06/05/19 06/05/19 06/05/19 04:16 08:28 12:22 RBC Glucose POC Glucose 214 H 293 H Hemoglobin A1c HDL Cholesterol 36 L 06/05/19 06/05/19 06/06/19 15:52 21:20 07:55 RBC Glucose POC Glucose 302 H 377 H 284 H Hemoglobin A1c HDL Cholesterol
[2019-06-06] MEDS ORDERED: NON-FORMULARY (Insulin Aspart 10 UNITS) SUB-Q SCH (16:30)
[2019-06-06] MEDS ORDERED: HumaLOG SUB-Q SCH (16:30)
[2019-06-06 17:24] VITALS: BP 150/90
--- NOTE | 2019-06-06 17:26 | Discharge Summary ---
Providers - Providers Date of Admission: 06/04/19 09:34 Date of discharge: 06/06/19 Attending physician: NINA HENLEY 06/04/19 Consult to Physician [CONS] Routine Comment: Consulting Provider: GAIL MARTIN Physician Instructions: Reason For Exam: cva 06/04/19 12:02 Consult to Case Management [CONS] Routine Services Needed at Discharge: Other Notified:: COPY LEFT FOR CM. Consult to Dietitian/Nutrition [CONS] Routine Physician Instructions: Reason For Exam: Reason for Consult: Nutrition Recommendations Reason for Consult: Diet education Occupational Therapy Evaluate and Treat [CONS] Routine Comment: Reason For Exam: Neuro deficits Physical Therapy Evaluation and Treat [CONS] Routine Comment: Reason For Exam: Neuro deficits Primary care physician: ELECTROPLATING TECHNICIAN Hospitalization Condition: Stable Hospital course: Brief history: 58-year-old male with history of coronary artery disease diabetes hypertension hyperlipidemia who presented to the hospital with some weakness and numbness on the right upper extremity. He was admitted to the hospital with stroke protocol for further evaluation and Mx. Radiological data: CT head: No acute/subacute infarction. No change in the chronic changes in the left superior inferior parietal lobules and in the left posterior perisylvian atrophy. MRI head There are multiple scattered foci of acute infarction involving subcortical regions along the left frontal and parietal lobes at. A couple small foci are also seen along the left parieto-occipital region. The largest of foci include the left precentral gyrus measuring approximately 5-6 mm in greatest transverse dimension. There is otherwise mild cerebral white matter disease on the FLAIR imaging most consistent with chronic microvascular angiopathy. Findings are most notably involving left parietal lobe and correlate with the previous study at. The ventricular system remains unchanged in size and configuration. MRA head neck : Mild atherosclerotic disease 2-D echo: Preserved EF Discharge Diagnosis and Mx: Acute CVA with Right upper extremity numbness - Monitored the patient with remote telemetry - CT scan of the head obtained in the ER and showed no acute abnormality - MRI brain showed multiple scattered acute CVA - Continue aspirin and statin, consulted neurology -will follow recommendation, will add plavix - no significant findings on MRA head neck, 2-D echocardiogram showed preserved EF - hemoglobin A1c level 11.1 - PTOT recommended no home needs - normal TSH and t4 level - neurology cleared the patient for discharge Hypertension, uncontrolled - Allowed permissive hypertension following admission - On IV hydralazine if his SBP more than 180 and diastolic more than 100 - Resumed his home medications, monitored his blood pressure and adjusted medications as needed Diabetes mellitus type 2 - 11.1 A1c, Mx with SSI, long-acting insulin and consistent carb diet Hyperlipidemia, continue statin History of coronary artery disease - Continue aspirin and statin, supportive care - Placed on GI prophylaxis to avoid stress ulcer - Placed on DVT prophylaxis Disposition: Home Disposition: DC-30 STILL A PATIENT Time spent for discharge: 34 minutes Core Measure Documentation - Palliative Care Palliative Care/ Comfort Measures: Not Applicable - Core Measures Any of the following diagnoses?: stroke - Stroke Discharge Requirements Statin for LDL = or >70 mg/dl on DC: Yes Anticoag for atrial fib/atrial flutter: Not Applicable Antithrombotic for ischemic stroke: Yes Exam - Physical Exam Narrative exam: GENERAL: well-developed and well-nourished -[place] male lying on bed appeared to be in no discomfort. HEENT: Normocephalic. Atraumatic. No conjunctival congestion or icterus. Patient has moist mucous membranes. NECK: Supple. Trachea midline. CHEST/LUNGS: Clear to auscultated bilaterally, breathing nonlabored. No wheezes crackles or rhonchi. HEART/CARDIOVASCULAR: Regular in rate and rhythm. S1 and S2 positive. ABDOMEN: Abdomen is soft, nontender. Patient has normal bowel sounds. SKIN: There is no rash. Warm and dry. NEURO: No focal motor deficit. Follows command. Cranial nerves intact MUSCULOSKELETAL: No joint effusion or tenderness. EXTRIMITY: No edema, no cyanosis or clubbing. PSYCH: Cooperative. - Constitutional Vitals: Temp Pulse Resp BP Pulse Ox 98.8 F 76 16 129/78 93 06/06/19 11:40 06/06/19 11:40 06/06/19 11:40 06/06/19 11:40 06/06/19 11:40 Plan Activity: advance as tolerated Weight Bearing Status: Weight Bear as Tolerated Diet: low fat, low salt, diabetic Special Instructions: record daily BP diary, record blood sugar diary Follow up with: PRIMARY CARE, [Primary Care Provider] - 3-5 Days Prescriptions: Aspirin EC [Halfprin EC] 81 mg PO QDAY #30 tablet. Clopidogrel [Plavix] 75 mg PO QDAY #30 tablet
--- NOTE | 2019-06-07 05:22 | Consultation ---
HISTORY OF PRESENT ILLNESS: The patient is a 58-year-old black male, who enters [facility] because of the severe headaches and the right-sided weakness along with speech difficulty. He acutely developed difficulty with his speech, left-sided throbbing, pulsatile, lancinating headaches. He presented to the hospital with a blood sugar that was elevated at 377. He was initially assessed and thought to have an ischemic stroke and since admission has remained neurologically stable. He has had admitted and has problems with difficulty now with his thought process and he also has problems with his speech and headache. He has had similar episodes in the past. Workup is not clear. At this point, he feels slightly confused. His states he is not quite acting like himself. ALLERGIES: He has no known allergies. SOCIAL HISTORY: Does not smoke and does not drink. PHYSICAL EXAMINATION: VITAL SIGNS: His current blood pressure is 151/88, pulse rate is 76, respirations 18, his temperature is 98.8 degrees. NEUROLOGIC: Cranial nerves 2 through 12 are intact. His affect is somewhat subdued. He has a slight aphasia, word finding problem. He has a supple neck. Motor and sensory examination otherwise unremarkable. No motor tone abnormalities are otherwise present ____. EXTREMITIES: No tremors, no asterixis and ankle jerks are 2+ and symmetrical. Cranial nerves 2 through 12 are intact. The patient's visual dennis are full to my examination. IMPRESSION: This patient has multiple small punctate areas in the left hemisphere of superficial cortical capillary ischemia, very much like the type seen in diabetics with hypercholesterolemia. I do not think this could be explained on the basis of embolic phenomena because this is interestingly present in the anterior circulation, posterior circulation, and middle circulation, all in the left hemisphere. More likely than not this occurred as a result of a rupture of a cholesterol intimal atheroma, which is intracranial as opposed to cardiac because of the distribution and the quality of the lesion, which is not that of a thromboembolic, but more of other type of lesion. I would recommend getting a lipid profile. Continue the patient on Plavix. I do not think what he is having represents a seizure. I would not start the patient on anticonvulsants. JOB# [id number] MALACHI/NTS
== END 2019-06-06 19:00 | disposition home or self-care (01) | DRG 66 ==
LOC: ED 07:37 → 3A 09:34
PROVIDERS: ADMIT Internal Medicine; ATTEND Internal Medicine
DX: I63.9 Cerebral infarction, unspecified (principal); G83.21 Monoplegia of upper limb affecting right dominant side; I10 Essential (primary) hypertension; E11.8 Type 2 diabetes mellitus with unspecified complications; I25.10 Atherosclerotic heart disease of native coronary artery without angina pectoris; M19.90 Unspecified osteoarthritis, unspecified site; R29.701 NIHSS score 1; E78.5 Hyperlipidemia, unspecified; Z79.4 Long term (current) use of insulin; Z95.5 Presence of coronary angioplasty implant and graft; Z82.49 Family history of ischemic heart disease and other diseases of the circulatory system; Z83.3 Family history of diabetes mellitus; Z79.82 Long term (current) use of aspirin; Z79.899 Other long term (current) drug therapy; Z87.442 Personal history of urinary calculi
CPT/HCPCS: 36415; 70450; 70544; 70547; 70551; 80048; 80061; 82962; 83036; 84439; 84443; 84484; 85025; 85610; 85670; 85730; 87116; 93005; 93010; 93306; G0378; A9270-GY; J1815

== ENCOUNTER 2019-06-12 07:31 | Emergency (ER) | payer BC, OTHER ==
--- NOTE | 2019-06-12 07:57 | Emergency Department Report ---
ED Seizure HPI - General Chief Complaint: Neuro Symptoms/Deficit Stated Complaint: RT ARM SPASM Time Seen by Provider: 06/12/19 07:50 Source: patient Mode of arrival: Ambulatory Limitations: No Limitations - History of Present Illness Initial Comments: 58-year-old male history of CAD, diabetes, hypertension, recently discharged from this facility about a week ago with diagnosis of CVA with right-sided deficits (right arm weakness, numbness mild slurred speech), presents to ED with right arm spasms x 4 days. states activity resembles seizure. Shaking is not generalized, only localized to the right arm. Patient is usually awake and alert during these episodes. Patient reports his hand clenches into a fist during these tremors. states when she pries his hand open, that seems to stop the shaking. Patient reports multiple episodes throughout the day, lasting for approximately 1 minute at a time. Patient has not had any bladder in continence or altered mental status associated with these episodes. Denies any aggravating factors. Patient reports he has had intermittent left-sided headache since his hospital stay for the CVA. Only new medication that he reports his Plavix. MD Complaint: possible seizure -: days(s) (4) -: minutes(s) (1) Witnessed:: Yes Trauma: No Seizure History: none Possible Precipitating Event: other (recent CVA) Associated Symptoms: denies: chest pain, confusion, fever/chills, shortness of breath Treatments Prior to Arrival: none - Related Data Home Medications Medication Instructions Recorded Confirmed Last Taken Carvedilol [Coreg] 25 mg PO BID 04/28/18 06/12/19 06/11/19 Cholecalciferol (Vitamin D3) 1,000 unit PO QDAY 04/28/18 06/12/19 06/11/19 [Vitamin D3] Citalopram Hydrobromide [Celexa] 40 mg PO QAM 04/28/18 06/12/19 06/11/19 Insulin Aspart [NovoLOG Flexpen] 26 units SUB-Q AC 04/28/18 06/12/19 06/11/19 Rosuvastatin Calcium [Crestor] 40 mg PO QDAY 04/28/18 06/12/19 06/11/19 hydroCHLOROthiazide [HCTZ] 25 mg PO QAM 04/28/18 06/12/19 06/11/19 Aspirin [Aspirin BABY CHEW TAB] 81 mg PO QDAY 06/12/19 06/12/19 06/11/19 ISOSORBIDE MONOnitrate [Imdur ER] 60 mg PO QDAY 06/12/19 06/12/19 06/11/19 Metformin HCl [metFORMIN] 1,000 mg PO QDAY 06/12/19 06/12/19 06/11/19 Pantoprazole [Protonix] 40 mg PO QDAY 06/12/19 06/12/19 06/11/19 Previous Rx's Medication Instructions Recorded Last Taken Type Lisinopril [Zestril TAB] 40 mg PO QDAY #30 tablet 01/21/17 06/11/19 Rx Pregabalin [Lyrica] 150 mg PO TID #90 capsule 01/21/17 06/11/19 Rx Insulin Glargine [Lantus VIAL] 86 units SUB-Q QHS units 04/30/18 06/11/19 Rx Clopidogrel [Plavix] 75 mg PO QDAY #30 tablet 06/06/19 06/11/19 Rx levETIRAcetam [Keppra TAB] 500 mg PO BID #60 tablet 06/12/19 Unknown Rx Allergies Allergy/AdvReac Type Severity Reaction Status Date / Time No Known Allergies Allergy Verified 05/18/16 13:24 ED Review of Systems ROS: Stated complaint: RT ARM SPASM Other details as noted in HPI Comment: All other systems reviewed and negative Constitutional: denies: chills, fever Respiratory: denies: shortness of breath Cardiovascular: denies: chest pain Neurological: headache, other (reports right arm tremors) ED Past Medical Hx - Past Medical History Previous Medical History?: Yes Hx Hypertension: Yes Hx CVA: Yes ("5 mini strokes") Hx Diabetes: Yes Hx Arthritis: Yes (Degenerative Arthritis C4-8) Hx Kidney Stones: Yes Hx Asthma: No Hx COPD: No - Surgical History Past Surgical History?: Yes Hx Coronary Stent: Yes Additional Surgical History: testicle removed in 1969 - Social History Smoking Status: Never Smoker Substance Use Type: None - Medications Home Medications: Home Medications Medication Instructions Recorded Confirmed Last Taken Type Lisinopril [Zestril TAB] 40 mg PO QDAY #30 tablet 01/21/17 06/12/19 06/11/19 Rx Pregabalin [Lyrica] 150 mg PO TID #90 capsule 01/21/17 06/12/19 06/11/19 Rx Carvedilol [Coreg] 25 mg PO BID 04/28/18 06/12/19 06/11/19 History Cholecalciferol (Vitamin D3) 1,000 unit PO QDAY 04/28/18 06/12/19 06/11/19 History [Vitamin D3] Citalopram Hydrobromide [Celexa] 40 mg PO QAM 04/28/18 06/12/19 06/11/19 History Insulin Aspart [NovoLOG Flexpen] 26 units SUB-Q AC 04/28/18 06/12/19 06/11/19 H istory Rosuvastatin Calcium [Crestor] 40 mg PO QDAY 04/28/18 06/12/19 06/11/19 History hydroCHLOROthiazide [HCTZ] 25 mg PO QAM 04/28/18 06/12/19 06/11/19 History Insulin Glargine [Lantus VIAL] 86 units SUB-Q QHS units 04/30/18 06/12/19 06/11/19 Rx Clopidogrel [Plavix] 75 mg PO QDAY #30 tablet 06/06/19 06/12/19 06/11/19 Rx Aspirin [Aspirin BABY CHEW TAB] 81 mg PO QDAY 06/12/19 06/12/19 06/11/19 History ISOSORBIDE MONOnitrate [Imdur ER] 60 mg PO QDAY 06/12/19 06/12/19 06/11/19 History Metformin HCl [metFORMIN] 1,000 mg PO QDAY 06/12/19 06/12/19 06/11/19 History Pantoprazole [Protonix] 40 mg PO QDAY 06/12/19 06/12/19 06/11/19 History levETIRAcetam [Keppra TAB] 500 mg PO BID #60 tablet 06/12/19 Unknown Rx ED Physical Exam - General Limitations: No Limitations General appearance: alert, in no apparent distress - Head Head exam: Present: atraumatic, normocephalic - Eye Eye exam: Present: normal appearance, PERRL, EOMI - ENT ENT exam: Present: mucous membranes moist - Neck Neck exam: Present: normal inspection, full ROM - Respiratory Respiratory exam: Present: normal lung sounds bilaterally. Absent: respiratory distress - Cardiovascular Cardiovascular Exam: Present: regular rate, normal rhythm - GI/Abdominal GI/Abdominal exam: Present: soft. Absent: distended, tenderness - Extremities Exam Extremities exam: Present: normal inspection - Neurological Exam Neurological exam: Present: alert, oriented X3, motor sensory deficit (4/5 strength in RUE, decreased sensation in RUE, no resting or intention tremor on exam; finger to nose nml bilaterally; strength/ sensation intact in all other extremities; speech is clear) - Psychiatric Psychiatric exam: Present: normal affect, normal mood - Skin Skin exam: Present: warm, dry, intact, normal color ED Course Vital Signs 06/12/19 06/12/19 06/12/19 07:35 07:54 08:00 Temperature 97.8 F 98.3 F Pulse Rate 83 84 85 Respiratory 18 19 11 L Rate Blood Pressure 158/96 141/83 Blood Pressure 152/82 [Right] O2 Sat by Pulse 96 98 99 Oximetry 06/12/19 06/12/19 06/12/19 09:00 09:31 11:09 Temperature Pulse Rate 75 72 74 Respiratory 10 L 22 17 Rate Blood Pressure 147/86 147/86 Blood Pressure 155/91 [Right] O2 Sat by Pulse 95 97 97 Oximetry 06/12/19 12:42 Temperature Pulse Rate 76 Respiratory 14 Rate Blood Pressure Blood Pressure 155/91 [Right] O2 Sat by Pulse 98 Oximetry - Consultations Consultation #1: 06/12/19 09:15 Spoke w/ teleneurologist, Dr Loida Ray. Recommends loading w/ 1 g Keppra, and start Keppra 500 mg BID. Also recommends repeat MRI Brain to evaluate for new CVA. If new CVA, admit and obtain CTA Head w/ contrast. ED Medical Decision Making - Lab Data Result diagrams: 06/12/19 08:10 06/12/19 08:10 - Radiology Data Radiology results: report reviewed, image reviewed - Medical Decision Making 58-year-old male with intermittent right arm tremors. Onset seizures given his recent admission for CVA. Labs show hyperglycemia, however no signs of DKA. Re peat Accu-Chek shows improvement of glucose. Spoke with teleneurologist, advised administration of Keppra. Repeat MRI today did not show any new acute strokes, so patient will be discharged with neurology follow-up. Patient given prescription for Keppra 5 mg twice a day. Return precautions given. - Differential Diagnosis seizure, CVA Critical care attestation.: If time is entered above; I have spent that time in minutes in the direct care o f this critically ill patient, excluding procedure time. ED Disposition Clinical Impression: New onset seizure, Hyperglycemia Disposition: - TO HOME OR SELFCARE Is pt being admited?: No Condition: Stable Instructions: New-Onset Seizure in Adults (ED), Diabetic Hyperglycemia (ED) Prescriptions: levETIRAcetam [Keppra TAB] 500 mg PO BID #60 tablet Referrals: PRIMARY CAREMD [Primary Care Provider] - 3-5 Days JUS BAILEY MD [Referring] - 3-5 Days Time of Disposition: 11:57
[2019-06-12 08:20] LABS: Basophils # (Auto) 0.1 K/mm3 (0.0-0.1); Basophils % (Auto) 1.3 % (0.0-1.8); Eosinophils # (Auto) 0.2 K/mm3 (0.0-0.4); Eosinophils % (Auto) 3.1 % (0.0-4.3); Hematocrit 45.9 % (35.5-45.6); Hemoglobin 15.5 gm/dl (11.8-15.2); Lymphocytes # (Auto) 1.8 K/mm3 (1.2-5.4); Mean Corpuscular HGB Conc 34 % (32-34); Mean Corpuscular Volume 86 fl (84-94); Monocytes # (Auto) 0.4 K/mm3 (0.0-0.8); Monocytes % (Auto) 6.3 % (0.0-7.3); Platelet Count 212 K/mm3 (140-440); Red Blood Count 5.34 M/mm3 (3.65-5.03); Red Cell Distribution Width 14.1 % (13.2-15.2)
[2019-06-12 08:40] LABS: BUN/Creatinine Ratio 19; Blood Urea Nitrogen 25 mg/dL (9-20); Calcium 9.5 mg/dL (8.4-10.2); Hemolysis Index 12
--- NOTE | 2019-06-12 08:48 | Cat Scan Report ---
CT HEAD WITHOUT CONTRAST INDICATION : right arm spasm; hx recent CVA w/ R sided deficits. TECHNIQUE: Axial imaging performed from the skull apex through the skull base without the use of con trast. Sagittal and coronal reformatted images. All CT scans at this location are performed using C T dose reduction for ALARA by means of automated exposure control. COMPARISON: CT brain dated 06/04/2019. MR brain dated 06/05/2019. FINDINGS: Parenchyma: No acute intracranial hemorrhage or parenchymal abnormality. Subtle areas of subacute is chemia in the left anterior and posterior watershed regions seen on recent MR are not clearly demonst rated on noncontrast CT. No large new area of acute ischemia has developed. No hemorrhage, mass or ma ss effect. Mild chronic white matter changes are stable. Ventricles: Ventricles are normal in size and appear symmetric. Bones: No acute osseous abnormality. Sinuses: Minimal mucosal thickening in the maxillary and right sphenoid sinus is noted. Soft tissues: Soft tissues including the orbits appear normal. IMPRESSION: No acute intracranial process is identified. See above. Signer Name: Vickey Quick Jr, MD Signed: 06/12/2019 8:43 AM Workstation Name: [id number]
[2019-06-12] MEDS ORDERED: KEPPRA 1,000 MG in NACL 0.9% 100 ML IV ONE (10:00)
--- NOTE | 2019-06-12 11:07 | Magnetic Resonance Report ---
MRI BRAIN 06/12/2019 INDICATION / CLINICAL INFORMATION: recent CVA, new onset seizures involving right arm. TECHNIQUE: Multiplanar, multisequence MR images of the brain were obtained. COMPARISON: 06/05/2019 FINDINGS: BRAIN / INTRACRANIAL CONTENTS: Unenhanced MR images of the brain were obtained and compared to the pr ior exam from 06/05/2019. On the prior exam, patchy areas of subcortical diffusion weighted signal abnormality were noted. Thes e are again noted, and are slightly less prominent but still visible. The associated pattern of T2 we ighted signal change on the FLAIR sequence is also unchanged. There is no definite evidence of superimposed abnormality. There is no evidence of superimposed ische marguerite injury, hemorrhage, or mass. There are no abnormal extra-axial fluid collections. Ventricles and sulci are normal in size and shape. EXTRACRANIAL: Unremarkable CRANIOCERVICAL JUNCTION: No significant abnormality. VASCULAR FLOW-VOIDS: No significant abnormality. IMPRESSION: Slightly decreased visibility of numerous patchy foci of diffusion weighted signal abnormality in th e left hemisphere when compared to 06/05/2019. No evidence of superimposed abnormality. Signer Name: Nam Ziegler MD Signed: 06/12/2019 11:02 AM Workstation Name: [id number]
[2019-06-12 11:10] VITALS: BP 155/91
== END 2019-06-12 12:35 | disposition home or self-care (01) ==
LOC: ED 07:31
DX: R56.9 Unspecified convulsions (principal); E11.65 Type 2 diabetes mellitus with hyperglycemia; I10 Essential (primary) hypertension; M19.90 Unspecified osteoarthritis, unspecified site; Z86.73 Personal history of transient ischemic attack (TIA), and cerebral infarction without residual deficits; Z87.442 Personal history of urinary calculi; Z95.5 Presence of coronary angioplasty implant and graft; Z79.899 Other long term (current) drug therapy
CPT/HCPCS: 36415; 70450; 70551; 80048; 85025; 96365; 99284; J1953

== ENCOUNTER 2020-07-09 10:05 | Outpatient (CLI) | payer OTHER ==
--- NOTE | 2020-07-09 14:01 | XRay Report ---
. LUMBAR SPINE 4 VIEWS INDICATION / CLINICAL INFORMATION: BACK PAIN. COMPARISON: None available. FINDINGS: VERTEBRAE: No fracture. No significant malalignment. DISC SPACES:Mild discogenic degenerative disease L3-5 FACET JOINTS:Moderate facet degenerative disease L5-S1 ADDITIONAL FINDINGS: None. IMPRESSION: 1. No significant abnormality. Signer Name: Denys Delacruz MD Signed: 07/09/2020 1:57 PM Workstation Name: [id number]
== END 2020-07-09 10:06 | disposition home or self-care (01) ==
LOC: XRAY 10:05
PROVIDERS: ATTEND Internal Medicine
DX: M51.36 Other intervertebral disc degeneration, lumbar region (principal); M47.816 Spondylosis without myelopathy or radiculopathy, lumbar region; E11.9 Type 2 diabetes mellitus without complications; I10 Essential (primary) hypertension; E78.5 Hyperlipidemia, unspecified; G47.33 Obstructive sleep apnea (adult) (pediatric)
CPT/HCPCS: 72100

== ENCOUNTER 2021-07-01 11:04 | Emergency (ER) | payer OTHER ==
[2021-07-01] MEDS ORDERED: SODIUM CHLORIDE 0.9% 1000 ML 1,000 ML IV ONE (11:08)
--- NOTE | 2021-07-01 11:11 | Emergency Department Report ---
Stated Complaint: SNYCOPE Time Seen by Provider: 07/01/21 11:05 - HPI History of Present Illness: Pt had syncopal event at cardiac rehab. Now feels weak. No cp. No dyspnea. Pt did have n/v with episode. This has happened previously w/exertion (mowing yard). - Exam Physical Exam: wdwn male in nad. rrr cta diaphoretic and pale sbp noted. MSE screening note: Focused history and physical exam performed. Due to findings the following was ordered: IV, labs, ekg ED Disposition for MSE Condition: Stable
--- NOTE | 2021-07-01 11:29 | Electrocardiograph Report ---
[facility] Test Date: 2021-07-01 Test Time: 11:16:45 Pat Name: TRAN ANDERSON Department: Room: Gender: M Hospitalist Medical Director: CHIQUITA : 1960 Requested By: STEVE AMADOR Order Number: [id number] Reading MD: Paulina Bosch Measurements Intervals [place] Rate: 86 P: 42 WA: 172 QRS: 36 QRSD: 87 T: 53 QT: 391 QTc: 467 Interpretive Statements Sinus rhythm No previous ECG available for comparison Electronically Signed On 07-01-2021 11:29:15 EST by Paulina Bosch
--- NOTE | 2021-07-01 11:43 | Emergency Department Report ---
HPI - General Chief Complaint: Syncope Time Seen by Provider: 07/01/21 11:05 - HPI HPI: MSE 5 The patient is a 60-year-old male present with a chief complaint of syncope. Patient states he was at cardiac rehab on the arm exercise machine for approximately 15 minutes. Patient states he did exercise without difficulty but after he stopped he began feeling dizzy. Patient states he went to the nursing station and that was his last memory. The patient apparently vomited became diaphoretic and had a syncopal episode. The patient states his next memory is awakening in the chair with staff around him. Patient denied ever having chest pain, shortness of breath or palpitations. Patient denies history of fever. 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) Hx Kidney Stones: Yes Additional medical history: Neuropathy - Surgical History Hx Coronary Stent: Yes (X4 most recent October 2020) Additional Surgical History: testicle removed in 1969 - Family History Family history: no significant - Social History Smoking Status: Never Smoker Substance Use Type: None (Denies illicit drug use) - Medications Home Medications: Home Medications Medication Instructions Recorded Confirmed Last Taken Type Pregabalin [Lyrica] 150 mg PO TID #90 capsule 01/21/17 04/02/21 04/02/21 06:30 Rx lisinopriL [Zestril TAB] 40 mg PO QDAY #30 tablet 01/21/17 04/02/21 04/02/21 06:30 Rx Carvedilol [Coreg] 25 mg PO BID 04/28/18 04/02/21 04/02/21 06:30 History Citalopram Hydrobromide [Celexa] 40 mg PO QAM 04/28/18 04/02/21 04/02/21 06:30 History Insulin Aspart (Nf) [NovoLOG 24 units SUB-Q AC 04/28/18 04/02/21 04/02/21 06:30 History Flexpen] Rosuvastatin Calcium [Crestor] 40 mg PO QDAY 04/28/18 04/02/21 04/02/21 06:30 History Clopidogrel [Plavix] 75 mg PO QDAY #30 tablet 06/06/19 04/02/21 04/02/21 06:30 Rx Aspirin [Aspirin BABY CHEW TAB] 81 mg PO QDAY 06/12/19 04/02/21 04/02/21 06:30 History ISOSORBIDE MONOnitrate [Imdur ER] 60 mg PO QDAY 06/12/19 04/02/21 04/02/21 06:30 History Chlorthalidone [Thalitone] 25 mg PO DAILY 04/02/21 04/02/21 04/02/21 06:30 History Insulin Glargine [Lantus VIAL] 64 units SUB-Q QHS 04/02/21 04/02/21 04/01/21 21:00 History ED Review of Systems ROS: Stated complaint: SNYCOPE Other details as noted in HPI Constitutional: diaphoresis Eyes: denies: eye pain ENT: denies: throat pain Respiratory: denies: shortness of breath Cardiovascular: denies: chest pain, palpitations Endocrine: no symptoms reported Gastrointestinal: nausea, vomiting Genitourinary: denies: dysuria Musculoskeletal: myalgia. denies: back pain Neurological: denies: headache Physical Exam - Physical Exam Vital Signs: Vital Signs 07/01/21 11:08 Temperature 98.1 F Pulse Rate 82 Respiratory 16 Rate Blood Pressure 89/50 [Left] O2 Sat by Pulse 98 Oximetry Vital Signs 07/01/21 07/01/21 11:08 13:04 Temperature 98.1 F Pulse Rate 82 70 Respiratory 16 16 Rate Blood Pressure 89/50 [Left] Blood Pressure 141/75 [Right] O2 Sat by Pulse 98 98 Oximetry Physical Exam: GENERAL: The patient is well-developed well-nourished male lying on stretcher diaphoretic but in no acute distress. [] HEENT: Normocephalic. Atraumatic. Extraocular motions are intact. Patient has moist mucous membranes. NECK: Supple. Trachea midline CHEST/LUNGS: Clear to auscultation. There is no respiratory distress noted. HEART/CARDIOVASCULAR: Regular. There is no tachycardia. There is no gallop rub or murmur. ABDOMEN: Abdomen is soft, nontender. Patient has normal bowel sounds. There is no abdominal distention. SKIN: There is no rash. There is no edema. There is no diaphoresis. NEURO: The patient is awake, alert, and oriented. The patient is cooperative. The patient has no focal neurologic deficits. The patient has normal speech. Cranial nerves II through XII grossly intact. GCS 15 MUSCULOSKELETAL: There is no evidence of acute injury. ED Course Vital Signs 07/01/21 11:08 Temperature 98.1 F Pulse Rate 82 Respiratory 16 Rate Blood Pressure 89/50 [Left] O2 Sat by Pulse 98 Oximetry - Consultations Consultation #1: 07/01/21 13:49 [facility] called 07/01/21 13:[address] Stokes-we will arrange for transfer to [facility]. Please call back with results of VQ scan and head CT. ED Medical Decision Making - Lab Data Result diagrams: 07/01/21 11:31 07/01/21 11:31 Laboratory Tests 07/01/21 07/01/21 07/01/21 11:31 11:31 11:39 WBC 5.7 RBC 4.67 Hgb 13.0 Hct 40.2 MCV 86 MCH 28 MCHC 32 RDW 14.6 Plt Count 191 D-Dimer 306.17 H Sodium 138 Potassium 3.9 Chloride 99.7 Carbon Dioxide 21 L Anion Gap 21 BUN 21 H Creatinine 1.5 H Estimated GFR 58 BUN/Creatinine Ratio 14 Glucose 195 H Calcium 8.9 Magnesium Total Creatine Kinase CK-MB (CK-2) CK-MB (CK-2) Rel Index Troponin T < 0.010 TSH Free T4 07/01/21 07/01/21 11:39 11:39 WBC RBC Hgb Hct MCV MCH MCHC RDW Plt Count D-Dimer Sodium Potassium Chloride Carbon Dioxide Anion Gap BUN Creatinine Estimated GFR BUN/Creatinine Ratio Glucose Calcium Magnesium 2.40 H Total Creatine Kinase 247 H CK-MB (CK-2) 3.9 CK-MB (CK-2) Rel Index 1.5 Troponin T TSH 0.860 Free T4 0.98 - EKG Data -: EKG Interpreted by Me EKG shows normal: sinus rhythm Rate: normal - EKG Data When compared to previous EKG there are: previous EKG unavailable Interpretation: nonspecific ST-T wave iqra (Flattened T waves lead aVL) - Radiology Data Radiology results: report reviewed (Chest x-ray, CT head, VQ scan), image reviewed (Chest x-ray, CT head, VQ scan) interpreted by me: Chest x-ray-no definite focal infiltrates, no pneumothorax. There is no cardiomegaly [address] [address] XRay Report Signed Patient: TRAN ANDERSON MR#: [id number] : 1960 Acct:[id number] Age/Sex: 60 / M ADM Date: 07/01/21 Loc: ED Attending Dr: Ordering Physician: LOUIS YBARRA MD Date of Service: 07/01/21 Procedure(s): XR chest 1V ap Accession Number(s): [id number] cc: LOUIS YBARRA MD Fluoro Time In Minutes: CHEST 1 VIEW 07/01/2021 12:45 PM INDICATION / CLINICAL INFORMATION: Syncope. COMPARISON: Chest x-ray on 01/20/2017 FINDINGS: SUPPORT DEV ICES: Loop recorder projects over the heart. HEART / MEDIASTINUM: No significant abnormality. LUNGS / PLEURA: No significant pulmonary or pleural abnormality. No pneumothorax. ADDITIONAL FINDINGS: No significant additional findings. IMPRESSION: 1. No acute findings. Signer Name: Korey Fernández MD Signed: 07/01/2021 1:48 PM Workstation Name: [id number] Transcribed By: MOLINA Dictated By: Korey Fernández MD Electronically Authenticated By: Korey Fernández MD Signed Date/Time: 07/01/21 1348 DD/ 1347 TD/TT: Print Cancel [address] [address] Cat Scan Report Signed Patient: TRAN ANDERSON MR#: [id number] : 1960 Acct:[id number] Age/Sex: 60 / M ADM Date: 07/01/21 Loc: ED Atten ding Dr: Ordering Physician: LOUIS YBARRA MD Date of Service: 07/01/21 Procedure(s): CT head/brain wo con Accession Number(s): [id number] cc: LOUIS YBARRA MD CT head/brain wo con INDICATION / CLINICAL INFORMATION: 60 years Male; Syncope. TECHNIQUE: Routine CT head without contrast. All CT scans at this location are performed using CT dose reduction for ALARA by means of automated exposure control. COMPARISON: 06/05/2019-MRI; CT-06/12/2019 FINDINGS: BRAIN / INTRACRANIAL CONTENTS: Old, small branch infarcts suggested in the posterior insular cortex region on the left, as well as the superior parietal lobule. Similar findings seen on recent prior CT. Otherwise, no acute hemorrhage, mass effect, midline shift, hydrocephalus, or acute, large territorial infarct. No signs of significant atrophy or chronic infarct. No significant white matter abnormality seen. CRANIOCERVICAL JUNCTION: No significant abnormality. ORBITS: No significant abnormality of visualized orbits. SINUSES / MASTOIDS: Mucous retention cysts/polyps seen in the maxillary antra. Similar findings seen in the right sphenoid sinus. ADDITIONAL FINDINGS: Mild temporomandibular joint disease noted on the right. IMPRESSION: 1. No focal mass, hemorrhage, hydrocephalus, or acute, large territorial infarct. Signer Name: George Gusman MD, III Signed: 07/01/2021 1:57 PM Workstation Name: [id number] Transcribed By: Dictated By: George Gusman MD Electronically Authenticated By: George Gusman MD Signed Date/Time: 07/01/21 135 DD/ 1347 TD/TT: Print Cancel [facility] [address] [place] [address] Nuclear Medicine Report Signed Patient: TRAN ANDERSON MR#: [id number] : 1960 Acct:[id number] Age/Sex: 60 / M ADM Date: 07/01/21 Loc: ED Attending Dr: Ordering Physician: LOUIS YBARRA MD Date of Service: 07/01/21 Pro cedure(s): NM perfusion only lung scan Accession Number(s): [id number] cc: LOUIS YBARRA MD NUCLEAR MEDICINE PERFUSION LUNG SCAN INDICATION / CLINICAL INFORMATION: Syncope. TECHNIQUE: 5mCi of Tc-99m MAA were given by IV. COMPARISON: Chest radiograph dated July 01, 2021. FINDINGS: PERFUSION: No significant perfusion defects. ADDITIONAL FINDINGS: None. IMPRESSION: 1. Low probability for pulmonary embolism. Signer Name: James Zaragoza MD Signed: 07/01/2021 2:10 PM Workstation Name: [id number] Transcribed By: CS Dictated By: James Zaragoza MD Electronically Authenticated By: James Zaragoza MD Signed Date/Time: 07/01/211409 DD/ 09 TD/TT: Print Cancel - Differential Diagnosis Syncope Critical care attestation.: If time is entered above; I have spent that time in minutes in the direct care of this critically ill patient, excluding procedure time. ED Disposition Clinical Impression: Syncope Disposition: 51 HOSPICE/MEDICAL FACILITY Is pt being admited?: No Does the pt Need Aspirin: No Condition: Stable Instructions: Syncope (ED) Referrals: [facility] [Other] - 3-5 Days
[2021-07-01 12:05] LABS: BUN/Creatinine Ratio 14; Blood Urea Nitrogen 21 mg/dL (9-20); Calcium 8.9 mg/dL (8.4-10.2); Hemolysis Index 60
[2021-07-01 12:14] LABS: Free T4 (Free Thyroxine) 0.98 ng/dL (0.76-1.46)
[2021-07-01 12:17] LABS: Hematocrit 40.2 % (35.5-45.6); Mean Corpuscular HGB Conc 32 % (32-34); Mean Corpuscular Volume 86 fl (84-94); Platelet Count 191 K/mm3 (140-440); Red Blood Count 4.67 M/mm3 (3.65-5.03); Red Cell Distribution Width 14.6 % (13.2-15.2)
[2021-07-01 12:34] LABS: Creatine Kinase MB 3.9 ng/mL (0.0-4.0)
[2021-07-01 13:05] VITALS: BP 141/75
--- NOTE | 2021-07-01 13:52 | XRay Report ---
CHEST 1 VIEW 07/01/2021 12:45 PM INDICATION / CLINICAL INFORMATION: Syncope. COMPARISON: Chest x-ray on 01/20/2017 FINDINGS: SUPPORT DEVICES: Loop recorder projects over the heart. HEART / MEDIASTINUM: No significant abnormality. LUNGS / PLEURA: No significant pulmonary or pleural abnormality. No pneumothorax. ADDITIONAL FINDINGS: No significant additional findings. IMPRESSION: 1. No acute findings. Signer Name: Korey Fernández MD Signed: 07/01/2021 1:48 PM Workstation Name: [id number]
--- NOTE | 2021-07-01 14:02 | Cat Scan Report ---
CT head/brain wo con INDICATION / CLINICAL INFORMATION: 60 years Male; Syncope. TECHNIQUE: Routine CT head without contrast. All CT scans at this location are performed using CT dos e reduction for ALARA by means of automated exposure control. COMPARISON: 06/05/2019-MRI; CT-06/12/2019 FINDINGS: BRAIN / INTRACRANIAL CONTENTS: Old, small branch infarcts suggested in the posterior insular cortex r egion on the left, as well as the superior parietal lobule. Similar findings seen on recent prior CT. Otherwise, no acute hemorrhage, mass effect, midline shift, hydrocephalus, or acute, large territori al infarct. No signs of significant atrophy or chronic infarct. No significant white matter abnormali ty seen. CRANIOCERVICAL JUNCTION: No significant abnormality. ORBITS: No significant abnormality of visualized orbits. SINUSES / MASTOIDS: Mucous retention cysts/polyps seen in the maxillary antra. Similar findings seen in the right sphenoid sinus. ADDITIONAL FINDINGS: Mild temporomandibular joint disease noted on the right. IMPRESSION: 1. No focal mass, hemorrhage, hydrocephalus, or acute, large territorial infarct. Signer Name: George Gusman MD, III Signed: 07/01/2021 1:57 PM Workstation Name: [id number]
--- NOTE | 2021-07-01 14:15 | Nuclear Medicine Report ---
NUCLEAR MEDICINE PERFUSION LUNG SCAN INDICATION / CLINICAL INFORMATION: Syncope. TECHNIQUE: 5mCi of Tc-99m MAA were given by IV. COMPARISON: Chest radiograph dated July 01, 2021. FINDINGS: PERFUSION: No significant perfusion defects. ADDITIONAL FINDINGS: None. IMPRESSION: 1. Low probability for pulmonary embolism. Signer Name: James Zaragoza MD Signed: 07/01/2021 2:10 PM Workstation Name: [id number]
== END 2021-07-01 17:09 | disposition hospice, inpatient (51) ==
LOC: ED 11:04
DX: R55 Syncope and collapse (principal); I10 Essential (primary) hypertension; E11.9 Type 2 diabetes mellitus without complications; M19.90 Unspecified osteoarthritis, unspecified site; Z86.73 Personal history of transient ischemic attack (TIA), and cerebral infarction without residual deficits; Z98.890 Other specified postprocedural states
CPT/HCPCS: 36415; 70450; 71045; 78580; 80048; 82550; 82553; 83735; 84439; 84443; 84484; 85027; 85379; 93005; 96360; 99284; A9540; J7030